=== PATIENT | male | born 1935 | race Two or more races ===

== ENCOUNTER → 2017-11-14 10:38 | Outpatient (CLI) | payer MEDICARE, SELFPAY ==
--- NOTE | 2017-11-14 10:44 | CA_ITS ---
PROCEDURE: 2-D M-mode and color Doppler study INDICATIONS FOR THE TEST: Chest pain COPD Heart Murmur Tobacco Smokingex Palpitations Fatigue Syncope Edema Hypertension+Diabetes Mellitus Rheumatic Fever SOB+PRATER Obesity Hyperlipidemia+ Family History HD Additional History AV replacement 2012, hx of AAA, Pacemaker Name on echo images is Josette Hubbard but is actually Jacinto Paulino's echo PATIENT INFORMATION HEIGHT: 63 WEIGHT: 160 GENDER: Male B/P: 142/84 2-D/M-MODE INTERPRETATION: 2-D MEASUREMENTS OBSERVED VALUES IN CMS Right Ventricular Dimension (RVDd) 2.2 Interventricular Septum (Thickness)(IVsd) 1.0 Left Ventricular Internal Dimensions(LVIDd) 4.7 Left Ventricular Posterior Wall (Thickness)(LVPWd) 1.0 Aortic Root 2.2 Aortic Cusp Separation 1.7 Left Atrial Dimensions (LAD) 3.6 2D 1. Left atrium is mildly enlarged, left ventricle is normal size, there is mild concentric left ventricular hypertrophy, visually estimated ejection fraction 55% with no obvious regional wall motion abnormality. 2. The right atrium and right ventricle are normal size and contractility. 3. There is mild prosthetic valve noted in the aortic position 4. The mitral and tricuspid valve leaflets are minimally thickened. 5. The pulmonic valve is poorly visualized. 6. No significant pericardial effusion noted. DOPPLER INTERROGATION: 1. The maximum aortic out flow velocity across the prosthetic valve is 3.4 m/s, resulting in a mean gradient across valve of 23 mmHg, this represents mild prosthetic valve stenosis, there is no significant aortic insufficiency seen. 2. Mild mitral and tricuspid regurgitation seen, tricuspid and jet velocity insufficient for acquisition of the right ventricular systolic pressure, grade 1 diastolic dysfunction seen with tissue Doppler evidence of raised left atrial pressure. CONCLUSION: 1. Mildly enlarged left atrium, normal left ventricular size, mild concentric left ventricular hypertrophy, visually estimated ejection fraction of 55% with no obvious regional wall motion abnormality, grade 1 diastolic dysfunction seen with tissue Doppler evidence of raised left atrial pressure. 2. 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 3. Mild mitral and tricuspid regurgitation 4. No significant pericardial effusion noted.
== END ==
PROVIDERS: Family Provider Internal Medicine Adolescent Medicine; PCP Internal Medicine Adolescent Medicine; Visit Provider Internal Medicine Cardiovascular Disease
DX: R06.00 Dyspnea, unspecified (principal); I10 Essential (primary) hypertension; E78.5 Hyperlipidemia, unspecified; Z95.2 Presence of prosthetic heart valve; Z86.79 Personal history of other diseases of the circulatory system
CPT/HCPCS: 93306

== ENCOUNTER → 2017-12-04 09:12 | Outpatient (CLI) | payer MEDICARE, SELFPAY ==
[2017-12-04 09:34] LABS: Anion Gap 11.9 mEq/L (5-15); Blood Urea Nitrogen 21 mg/dL (7-18); Carbon Dioxide 30 mmol/L (21.0-32.0); Chloride 105 mmol/L (98-107); Creatinine,Serum 1.31 mg/dL (0.70-1.30); Estimated Glomerular Filt Rate 53 ml/min (>60); GFR (African American) 64 ML/MIN (>60); Glucose 111 mg/dL (74-106); Potassium 4.9 mmoL/L (3.5-5.1); Sodium 142 mmol/L (136-145)
== END ==
PROVIDERS: Visit Provider Internal Medicine Cardiovascular Disease
DX: Z98.890 Other specified postprocedural states (principal); Z95.2 Presence of prosthetic heart valve; I10 Essential (primary) hypertension; E78.5 Hyperlipidemia, unspecified; Z95.0 Presence of cardiac pacemaker; R06.09 Other forms of dyspnea
CPT/HCPCS: 36415; 80048

== ENCOUNTER → 2018-01-27 10:28 | Outpatient (CLI) | payer MEDICARE, SELFPAY ==
[2018-01-27 12:34] LABS: Anion Gap 12.7 mEq/L (5-15); Blood Urea Nitrogen 23 mg/dL (7-18); Carbon Dioxide 29 mmol/L (21.0-32.0); Chloride 104 mmol/L (98-107); Creatinine,Serum 1.11 mg/dL (0.70-1.30); Estimated Glomerular Filt Rate 64 ml/min (>60); GFR (African American) 77 ML/MIN (>60); Glucose 96 mg/dL (74-106); Potassium 4.7 mmoL/L (3.5-5.1); Sodium 141 mmol/L (136-145)
== END ==
PROVIDERS: Visit Provider Internal Medicine Cardiovascular Disease
DX: R94.31 Abnormal electrocardiogram [ECG] [EKG] (principal); R06.09 Other forms of dyspnea; I10 Essential (primary) hypertension; E78.5 Hyperlipidemia, unspecified; Z95.0 Presence of cardiac pacemaker; Z95.2 Presence of prosthetic heart valve
CPT/HCPCS: 36415; 80048

== ENCOUNTER → 2018-03-17 07:24 | Outpatient (CLI) | payer MEDICARE, SELFPAY ==
--- NOTE | 2018-03-17 07:42 | XR_ITS ---
XR chest 2V HISTORY: ITS.REASON: SUPRACLAVICULAR LYMPHADENOPATHY ORDERING PHYSICIAN: Alex García MD PATIENT AGE: 82 years COMPARISON: None FINDINGS: There has been prior aortic valve replacement with median sternotomy. Bipolar pacemaker is present. Normal heart size. There is prominence/aneurysm of the aortic knob. There is also mild prominence of the superior mediastinum which could be due to vascular ectasia. There is tortuosity/ectasia of the descending thoracic aorta. The lungs are clear. Slight decrease in height anteriorly of T4 and T3 age indeterminate. IMPRESSION: 1. Prominence of the aortic knob suggesting aneurysmal dilatation which may be confirmed with CT. 2. Prior aortic valve replacement pacemaker present
[2018-03-17 07:49] LABS: Basophils # 0.1 K/mm3 (0-0.2); Basophils % 0.6 % (0.1-2.0); Eosinophils # 0.2 K/mm3 (0.0-0.4); Eosinophils % 2.2 % (0.1-12.0); Hemoglobin 15.2 g/dL (14.1-18.0); Lymphocytes # 2.8 K/mm3 (0.7-4.5); Lymphocytes % 29.5 K/mm3 (10-50); Mean Corpuscular HGB Conc 31.7 g/dL (31.8-35.4); Mean Corpuscular Hemoglobin 29.4 pg (27.0-31.2); Mean Corpuscular Volume 92.7 fl (80-94); Mean Platelet Volume 6.7 fl (7.4-10.4); Monocytes # 0.5 K/mm3 (0.1-1.0); Monocytes % 5.7 % (1.7-9.3); Neutrophils # 5.8 K/mm3 (1.8-7.8); Neutrophils % 62.1 % (37.0-80.0); Platelet Count 288 K/mm3 (142-424); Red Blood Count 5.18 M/mm3 (4.60-6.20); Red Cell Distribution Width 14.7 % (11.5-17.5); White Blood Count 9.4 K/mm3 (4.8-10.8)
[2018-03-17 08:47] LABS: Alanine Aminotransferase 27 U/L (12-78); Albumin Level 3.8 gm/dL (3.4-5.0); Albumin/Globulin Ratio 1.2 (1.1-1.8); Alkaline Phosphatase 92 U/L (46-116); Anion Gap 10.2 mEq/L (5-15); Aspartate Amino Transferase 16 U/L (15-37); Bilirubin,Total 0.6 mg/dL (0.2-1.0); Blood Urea Nitrogen 18 mg/dL (7-18); Calcium 9.1 mg/dL (8.5-10.1); Carbon Dioxide 29 mmol/L (21.0-32.0); Chloride 105 mmol/L (98-107); Chol/HDL Ratio 3.9 (1-3.5); Cholesterol 162 mg/dL (140-200); Creatinine,Serum 1.17 mg/dL (0.70-1.30); Estimated Glomerular Filt Rate 60 ml/min (>60); GFR (African American) 72 ML/MIN (>60); Globulin 3.2 gm/dl (1.3-3.2); Glucose 103 mg/dL (74-106); HDL Cholesterol 42 mg/dL (27-67); LDL Cholesterol 94 mg/dL (0-130); Potassium 4.2 mmoL/L (3.5-5.1); Sodium 140 mmol/L (136-145); Triglycerides 131 mg/dL (30-200); VLDL Cholesterol 26 mg/dL (0-40)
[2018-03-19 08:05] LABS: Vitamin B12 579 pg/mL (232-1245)
== END ==
PROVIDERS: Visit Provider Internal Medicine Adolescent Medicine
DX: M79.1 Myalgia (principal); E78.4 Other hyperlipidemia; R59.0 Localized enlarged lymph nodes
CPT/HCPCS: 36415; 71046; 80053; 80061; 82607; 83735; 85025

== ENCOUNTER → 2018-06-15 15:20 | Outpatient (POV) | payer MEDICARE, SELFPAY ==
[2018-06-15 15:53] VITALS: BP 153/85; PULSE 74; RESP 18; O2SAT 98
--- NOTE | 2018-06-16 08:34 | HMH.PMCON ---
Assessment and Plan (1) Postlaminectomy syndrome Current visit: Yes Status: Chronic Category: Medical Code(s): M96.1 - Postlaminectomy syndrome, not elsewhere classified (2) Spinal stenosis Current visit: Yes Status: Chronic Qualifiers: Spinal region: lumbar Neurogenic claudication status: unspecified Qualified Code(s): M48.061 - Spinal stenosis, lumbar region without neurogenic claudication Category: Medical Code(s): M48.00 - Spinal stenosis, site unspecified (3) Lumbar radiculopathy Current visit: Yes Status: Acute Category: Medical Code(s): M54.16 - Radiculopathy, lumbar region - Assessment and plan all Dx Assessment and Plan for all problems:: Patient and I had a long discussion in regards to treatment options. Patient is allergic to some narcotics and also unable to take most of them. Patient's tried and failed most of them. Patient's tried and failed multiple anti-inflammatory treatment. Patient's tried and failed physical therapy along with chiropractic therapy and injective therapy. Patient and I discussed in neurostimulator he is interested in pursuing Fan system. I discussed with him that trying an process of implantation. Patient would like to proceed with this. This note was dictated using voice recognition software and may contain errors or omissions HPI - Data of Consult Consult date: 06/15/18 Requesting Physician: Zuleika Reyes APRN Primary Care Provider: Alex García MD Family Provider: Alex García MD - Consult Narrative Reason for consult: Back pain History of present illness: Mr. Paulino is a 82 year old male who presents today for consultation in regards to his constant low back pain. Patient rates his pain a 7 out of 10 today. Patient states it is achy in nature. Patient also has some weakness in his bilateral legs. Patient states all activity increases pain while nothing decreases the pain. Patient has tried physical therapy with no relief massage therapy with no relief, chiropractic therapy with no relief, epidural and facet joint injections with no relief, patient has had surgery and X-Stop placed with some relief. Patient has tried and failed Celebrex, Flexeril, Valium, Voltaren, gabapentin, Lortab, Motrin, bracing, acupuncture, meloxicam, naproxen. Patient is interested in a more long-term answer to his pain issues. Patient is not on any anticoagulation therapy. Patient does have a pacemaker which is a Saint Fan pacemaker. CC: Zuleika Reyes APRN [facility] History I have reviewed the patient's past medical history: Yes Medical History: Reports:: Aneurysm, Hyperlipidemia, Hypertension, Internal Pacemaker Denies:: Diabetes Mellitus Type 1 Other Medical History: Reports: Arthritis Laterality Cases: Bilateral: Tonsillectomy Other Surgeries: Yes: Cardiac Surgery, Mitral Valve Replacement, Pacemaker, Thyroidectomy, Other (Eye Sx, Back Sx ) - *Social History Smoking Status: Never smoker Alcohol Intake: never Alcohol Intake Frequency:: other Occupational Status: other Housing: house Household Members: spouse - Psychiatric History Expresses thoughts of harming self/others: None Suicide Plan Description: No Plan *Family Hx:: Non-contributory Review of Systems - Review of Systems ROS General: no recent weight change, no fever, no sleep disturbances Respiratory: no cough, no shortness of air, no recurring pulmonary infections Cardiovascular/Peripheral Vascular: No chest pain, No palpitations, no edema, no shortness of breath. Gastrointestinal: no incontinence, normal bowel movements reported Genitourinary: no incontinence Musculoskeletal: Back pain Psychiatric: normal mood/ affect, Neurological: Weakness in bilateral lower extremities at times, [denies balance issues] Meds Home Medications Medication Instructions Recorded Confirmed Type artificial tears (hypromellose) 1 drp OPHTHALMIC ONCE 11/06/17 History 0.
--- NOTE | 2018-06-16 08:37 | P.CONS_ITS ---
Assessment and Plan (1) Postlaminectomy syndrome Current visit: Yes Status: Chronic Category: Medical Code(s): M96.1 - Postlaminectomy syndrome, not elsewhere classified (2) Spinal stenosis Current visit: Yes Status: Chronic Qualifiers: Spinal region: lumbar Neurogenic claudication status: unspecified Qualifi ed Code(s): M48.061 - Spinal stenosis, lumbar region without neurogenic claudication Category: Medical Code(s): M48.00 - Spinal stenosis, site unspecified (3) Lumbar radiculopathy Current visit: Yes Status: Acute Category: Medical Code(s): M54.16 - Radiculopathy, lumbar region - Assessment and plan all Dx Assessment and Plan for all problems:: Patient and I had a long discussion in regards to treatment options. Patient is allergic to some narcotics and also unable to take most of them. Patient's tried and failed most of them. Patient's tried and failed multiple anti- inflammatory treatment. Patient's tried and failed physical therapy along with chiropractic therapy and injective therapy. Patient and I discussed in neurostimulator he is interested in pursuing Fan system. I discussed with him that trying an process of implantation. Patient would like to proceed with this. This note was dictated using voice recognition software and may contain errors or omissions HPI - Data of Consult Consult date: 06/15/18 Requesting Physician: Zuleika Reyes APRN Primary Care Provider: Alex García MD Family Provider: lAex García MD - Consult Narrative Reason for consult: Back pain History of present illness: Mr. Paulino is a 82 year old male who presents today for consultation in regards to his constant low back pain. Patient rates his pain a 7 out of 10 today. Patient states it is achy in nature. Patient also has some weakness in his bilateral legs. Patient states all activity increases pain while nothing decreases the pain. Patient has tried physical therapy with no relief massage therapy with no relief, chiropractic therapy with no relief, epidural and facet joint injections with no relief, patient has had surgery and X-Stop placed with some relief. Patient has tried and failed Celebrex, Flexeril, Valium, Voltaren, gabapentin, Lortab, Motrin, bracing, acupuncture, meloxicam, naproxen. Patient is interested in a more long-term answer to his pain issues. Patient is not on any anticoagulation therapy. Patient does have a pacemaker which is a Saint Fan pacemaker. CC: Zuleika Reyes APRN [facility] History I have reviewed the patient's past medical history: Yes Medical History: Reports:: Aneurysm, Hyperlipidemia, Hypertension, Internal Pacemaker Denies:: Diabetes Mellitus Type 1 Other Medical History: Reports: Arthritis Laterality Cases: Bilateral: Tonsillectomy Other Surgeries: Yes: Cardiac Surgery, Mitral Valve Replacement, Pacemaker, Thyroidectomy, Other (Eye Sx, Back Sx ) - *Social History Smoking Status: Never smoker Alcohol Intake: never Alcohol Intake Frequency:: other Occupational Status: other Housing: house Household Members: spouse - Psychiatric History Expresses thoughts of harming self/others: None Suicide Plan Description: No Plan *Family Hx:: Non-contributory Review of Systems - Review of Systems ROS General: no recent weight change, no fever, no sleep disturbances Respiratory: no cough, no shortness of air, no recurring pulmonary infections Cardiovascular/Peripheral Vascular: No chest pain, No palpitations, no edema, no shortness of breath. Gastrointestinal: no incontin
== END ==
PROVIDERS: Family Provider Internal Medicine Adolescent Medicine; PCP Internal Medicine Adolescent Medicine; Visit Provider Clinical Nurse Specialist Family Health
DX: M96.1 Postlaminectomy syndrome, not elsewhere classified (principal); M48.061 Spinal stenosis, lumbar region without neurogenic claudication; M54.16 Radiculopathy, lumbar region
CPT/HCPCS: 99202

== ENCOUNTER → 2018-06-29 08:29 | Outpatient (CLI) | payer MEDICARE, SELFPAY ==
--- NOTE | 2018-06-29 08:31 | CI_ITS ---
Cerebrovascular Exam Indications: 785.9 Bruit. IMPRESSIONS 1. The bilateral vertebral arteries are patent with normal antegrade flow. 2. Study suggests 20-49% stenosis involving the right internal carotid artery and the left internal carotid artery, lower end of scale. Carotid duplex study. Complete study and Doppler flow study including spectral analysis, color and garza scale imaging. Height: Height: 172.7cm. Height: 68in. Weight: Weight: 73.9kg. Weight: 162.7lb. Body mass index: BMI: 24.8kg/m^2. Body surface area: BSA: 1.89m^2. Location: Vascular laboratory. Patient status: Outpatient. Tables: Arterial flow: + +--------+--------+ Location V sys V ed + +--------+--------+ Right CCA - proximal 39.7cm/s 10.2cm/s + +--------+--------+ Right CCA - distal 33.6cm/s 13.2cm/s + +--------+--------+ Right ECA 67.3cm/s -------- + +--------+--------+ Right ICA - proximal 30.6cm/s 9.7cm/s + +--------+--------+ Right ICA - mid 48.8cm/s 17.6cm/s + +--------+--------+ Right ICA - distal 70.2cm/s 26.2cm/s + +--------+--------+ Right vertebral 31.4cm/s -------- + +--------+--------+ Left CCA - proximal 125cm/s 25.8cm/s + +--------+--------+ Left CCA - distal 46.2cm/s 16.7cm/s + +--------+--------+ Left ECA 45.6cm/s -------- + +--------+--------+ Left ICA - proximal 27.8cm/s 10.7cm/s + +--------+--------+ Left ICA - mid 39.4cm/s 13cm/s + +--------+--------+ Left ICA - distal 47.1cm/s 16.9cm/s + +--------+--------+ Left vertebral 32.3cm/s -------- + +--------+--------+ Velocity ratios: + + + + + + Right, V sys Right, V ed Left, V sys Left, V ed + + + + + + Max ICA/dist CCA 2.09 1.98 1.02 1.01 + + + + + + (Report amended ) Electronically signed by: Giorgi Lu [id number]
== END ==
PROVIDERS: Family Provider Internal Medicine Adolescent Medicine; PCP Internal Medicine Adolescent Medicine; Visit Provider Internal Medicine
DX: I10 Essential (primary) hypertension; R09.89 Other specified symptoms and signs involving the circulatory and respiratory systems; R94.31 Abnormal electrocardiogram [ECG] [EKG]; Z87.891 Personal history of nicotine dependence; Z95.0 Presence of cardiac pacemaker; Z95.2 Presence of prosthetic heart valve; Z98.890 Other specified postprocedural states; I65.23 Occlusion and stenosis of bilateral carotid arteries
CPT/HCPCS: 93880

== ENCOUNTER 2018-08-24 09:03 | Outpatient (RCR) | payer MEDICARE, SELFPAY ==
--- NOTE | 2018-08-24 10:46 | HMH.PTOPEV ---
PT Outpatient Evaluation Rehab PT Outpatient Evaluation Start: 08/24/18 09:27 Freq: Status: Active Protocol: Document 08/24/18 10:33 ZOLTAN (Rec: 08/24/18 10:46 PHORWANDY [id number]) Electronically Signed By Paulo Espana, PT 08/24/18 10:33 Outpatient Therapy Subjective History Subjective History Pt is 83 yohm who presents with c/o chronic low back pain x ~ 40 yrs, worse on the right side with intermittent pain in the buttocks alexis. He states, I picked up an air conditioner wrong and it has hurt me ever since. He reports having surgery for spacers at L2-3, L3-4, and L4- 5 ! 8 yrs ago which helped minimally. He reports a sharp pain on the right side of the spine at ~ L3-4 vertebral level that is fairly constant. He also reports pain is worst with walking. PMH: carotid stenosis, Pacemaker, aortic valve replacement, HTN, partial thyroidectomy. Chief Complaint Pain Symptom Type Sharp Symptoms Relieved By Activity Symptoms Aggravated By Walking Prior Functional Limitations Walking Current Functional Limitations Walking Symptom Description Constant but Variable Level of pain today (0-10) 8 Pain scale - at its worst (0-10) 10 Lumbopelvic Eval Palapation tenderness bilateral buttock tenderness Yes: minimal Range of Motion Lumbar Spine Active Flexion Range of 0-60 Motion (degrees) Lumbar Spine Active Extension Range of 0-15 Motion (degrees) Left Lumbar Spine Lateral Flexion Active 0-10 Range of Motion (degrees) Right Lumbar Spine Lateral Flexion 0-10 Active Range of Motion (degrees) Manual Muscle Test Bilateral Knee Extension Strength Grade 5 Normal Knee Flexion Strength Grade 5 Normal Hip Flexion Strength Grade 5 Normal Hip Abduction Strength Grade 5 Normal Hip Adduction Strength Grade 5 Normal Ankle Dorsiflexion Strength Grade 5 Normal Gastronemius/Soleus Strength Grade 5 Normal DTR Rt Patellar 2+ Lt Patellar 2+ Rt Gastroc/Soleus 2+ Lt Gastroc/Soleus 2+ Special Tests Hip Scouring (Quadrant) Test Negative Left Negative Right Hip Igor (JUHI)
== END 2018-08-24 09:05 | disposition home or self-care (01) ==
LOC: PT 09:03
PROVIDERS: Visit Provider Internal Medicine Adolescent Medicine
DX: M54.5 Low back pain (principal)
CPT/HCPCS: 97110; 97163

== ENCOUNTER → 2018-11-20 08:23 | Outpatient (CLI) | payer MEDICARE, SELFPAY ==
[2018-11-20 09:58] LABS: Chol/HDL Ratio 6.1 (1-3.5); Cholesterol 214 mg/dL (140-200); HDL Cholesterol 35 mg/dL (27-67); LDL Cholesterol 147 mg/dL (0-130); Triglycerides 161 mg/dL (30-200); VLDL Cholesterol 32 mg/dL (0-40)
== END ==
PROVIDERS: Visit Provider Internal Medicine Adolescent Medicine
DX: E78.2 Mixed hyperlipidemia (principal)
CPT/HCPCS: 36415; 80061

== ENCOUNTER → 2019-01-25 07:48 | Outpatient (CLI) | payer MEDICARE, SELFPAY ==
--- NOTE | 2019-01-25 07:51 | US_ITS ---
US abdomen complete HISTORY: Ascending aortic aneurysm, prior aneurysm repair of the ascending aorta, evaluate for aneurysm ITS.REASON: AAA ORDERING PHYSICIAN: Rafa Fleming PATIENT AGE: 83 years COMPARISON: None FINDINGS: PANCREAS:Unremarkable. No obvious mass or abnormal fluid collection. No ductal dilatation LIVER:No focal liver lesions demonstrated. Homogeneous echogenicity. No intrahepatic biliary ductal dilatation evident RIGHT KIDNEY:Unremarkable. Normal size and echogenicity. No hydronephrosis LEFT KIDNEY:Unremarkable. No hydronephrosis. Normal size and echogenicity. GALLBLADDER:There are gallstones noted. No gallbladder wall thickening, pericholecystic fluid, or biliary dilatation is evident. AORTA:There is a moderate amount plaque within the mid abdominal aorta posteriorly. There is suggestion of a 4 cm infrarenal abdominal aortic aneurysm. The aneurysm may be larger than this measuring up to 5 cm. This is somewhat difficult to evaluate due to the plaque at overlying bowel gas. Suggest CT of the abdomen for confirmation. SPLEEN:Unremarkable. Normal size and echogenicity ASCITES:None demonstrated. IMPRESSION: Mid abdominal aortic aneurysm measuring up to 4 cm possibly up to [address] of the abdomen for confirmation.
--- NOTE | 2019-01-25 08:00 | CA_ITS ---
PROCEDURE: 2-D M-mode and color Doppler study INDICATIONS FOR THE TEST: Chest pain COPD Heart Murmur Tobacco SmokingEX Palpitations Fatigue Syncope Edema HypertensionXDiabetes Mellitus Rheumatic Fever SOB PRATER Obesity HyperlipidemiaX Family History HD Additional History AAA,PP,AVR 2011 [facility] PATIENT INFORMATION HEIGHT: 63 WEIGHT:160 GENDER: Male B/P:129/87 2-D/M-MODE INTERPRETATION: 2-D MEASUREMENTS OBSERVED VALUES IN CMS Right Ventricular Dimension (RVDd) 3.0 Interventricular Septum (Thickness)(IVsd) .9 Left Ventricular Internal Dimensions(LVIDd) 5.3 Left Ventricular Posterior Wall (Thickness)(LVPWd) .9 Aortic Root 4.0 Aortic Cusp Separation 1.5 Left Atrial Dimensions (LAD) 3.2 2D 1. Left atrium is mildly enlarged, left ventricle is normal size, mild concentric left ventricular hypertrophy, visually estimated ejection fraction 55% with no regional wall motion abnormality. 2. The right atrium and right ventricle are mildly enlarged with normal contractility. 3. There is mild prosthetic valve noted in the aortic position, the valve is well seated. 4. The mitral and tricuspid valve leaflets are minimally thickened. 5. The pulmonic valve is poorly visualized. 6. No significant pericardial effusion noted. DOPPLER INTERROGATION: 1. The aortic out flow velocity across the prosthetic valve is within normal range. There is no prosthetic valve stenosis or prosthetic valve insufficiency. 2. The mitral inflow velocity within normal range, there is no mitral stenosis, there is mild mitral regurgitation. 3. There is mild tricuspid regurgitation noted, tricuspid regurgitation jet velocity is inadequate for calculation of the right ventricular systolic pressure. 4. Grade 1 diastolic dysfunction seen without tissue Doppler evidence of raised left atrial pressure. CONCLUSION: 1. Mildly enlarged left atrium, normal left ventricular size, mild concentric left ventricular hypertrophy, visually estimated ejection fraction 55% with no regional wall motion abnormality, grade 1 diastolic dysfunction seen without tissue Doppler evidence of raised left atrial pressure. 2. Normal functioning bio prosthetic valve in aortic position 3. Mild mitral and tricuspid regurgitation 4. No significant pericardial effusion noted.
== END ==
PROVIDERS: PCP Internal Medicine Adolescent Medicine; Visit Provider Internal Medicine Cardiovascular Disease
DX: I71.4 Abdominal aortic aneurysm, without rupture (principal); I10 Essential (primary) hypertension; Z95.2 Presence of prosthetic heart valve
CPT/HCPCS: 76700; 93306

== ENCOUNTER → 2019-02-10 12:33 | Outpatient (CLI) | payer MEDICARE, SELFPAY ==
--- NOTE | 2019-02-10 12:36 | CT_ITS ---
CT abdomen wo con CLINICAL INDICATION: Abdominal aortic aneurysm, back pain ITS.REASON: AAA ORDERING PHYSICIAN: Rafa Fleming PATIENT AGE: 83 years COMPARISON: None TECHNIQUE: Axial images obtained with sagittal and coronal reformats. All CT scans at the facility use one or more dose reduction, viz: automated exposure control, ma/kV adjustment per patient size (including targeted exams where dose is matched to indication, i.e. head), or iterative reconstruction technique. PROCEDURE: Oral Contrast: None IV Contrast: None . FINDINGS: No acute finding in the lung bases. There is a noncalcified 6 mm nodule in the left lower lobe posterior medially. 4 mm noncalcified nodule in the right upper lobe inferiorly. Calcified granulomas present in the right lung base. There is been a prior CABG and aortic valve replacement. There are coronary artery calcifications as well as artifact from a RV pacemaker.. 8 mm hypoattenuating nodule is present in the left hepatic lobe medial segment. Gallstones are noted. There is an additional isodensity in the right hepatic lobe anteriorly at 6 mm. Spleen, adrenal glands, and pancreas have an unremarkable unenhanced CT appearance. There is minimal haziness of the midline mesenteric fat. There is tortuosity of the abdominal aorta. There is mild ectasia of the aorta at the thoracic abdominal junction at 3.2 x 3.2 cm. At the level the renal arteries the aorta measures 2 cm transverse and then becomes mildly fusiformly dilated measuring up to 2.9 cm transverse and 3 cm AP. Atherosclerotic changes involve the common iliacs. There is diffuse colonic diverticulosis. No evidence of diverticulitis. Degenerative changes are present in the lumbar spine with postsurgical changes. IMPRESSION: 1. Mild fusiform dilatation of the aorta at the thoracic abdominal junction at 3.2 x 3.2 cm becoming normal caliber at the level the renal arteries and then becomes mildly dilated in the infrarenal region at 2.9 x 3 cm. No evidence of acute intracranial hemorrhage 2. 6 mm noncalcified nodule left lower lobe. Consider 6 month follow-up. 3. Mild haziness of the central mesenteric fat nonspecific. 4. Cholelithiasis. 5. Colonic diverticulosis
== END ==
PROVIDERS: PCP Internal Medicine Adolescent Medicine; Visit Provider Internal Medicine Cardiovascular Disease
DX: I71.4 Abdominal aortic aneurysm, without rupture (principal)
CPT/HCPCS: 74150

== ENCOUNTER 2019-10-20 09:26 | Outpatient (RCR) | payer MEDICARE, SELFPAY ==
--- NOTE | 2019-10-20 10:49 | HMH.PTOPEV ---
PT Outpatient Evaluation Rehab PT Outpatient Evaluation Start: 10/20/19 09:39 Freq: Status: Active Protocol: Document 10/20/19 10:20 PHORNE (Rec: 10/20/19 10:49 PHORNE [id number]) Electronically Signed By Paulo Espana, PT 10/20/19 10:20 Outpatient Therapy Subjective History Subjective History Pt is 84 yohm who presents with c/o persistent dizziness x ~ 5-6 mos with insidious onset of symptoms. He reports low grade dizziness at all times and only rare, intermittent positional vertigo. He has significant cardiac hx with prior aortic valve replacement and ascending aorta repair, HTN, and pacemaker. He reports his HTN has been problematic over the same time period with good systolic pressure, but very high dyastolic pressure. 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 Chief Complaint Other Symptoms Relieved By Nothing Prior Functional Limitations None Current Functional Limitations None Symptom Description Constant but Variable Level of pain today (0-10) 0 Pain scale - at its worst (0-10) 0 Balance Eval Hx of Falls Hx Falls No Gait/Posture Asssessment General Gait Observation No Deviations/Normal Assistive Devices None / NA Level of Transfer Assist Independent Nystagmus Nystagmus Presence None Timed Up and Go Test 3. Is the Timed Up and Go Test result < yes 12 seconds? Oculomotor Gaze Oculomotor Gaze Nml: Vergence Smooth Pursuit Saccades VOR Cancellation [place] Feet Together/Eyes open/Stable Surface pass Feet Together/Eyes Closed/Stable Surface pass Feet Together/Eyes open/Unstable Surface pass Feet Together/Eyes Closed/Unstable pass Surface Outpatient Therapy Assessment Impairments Problems/Impairmments Impaired Self Care/Self Management Prognosis Rehab Potential Good Comment Pt c/o mild dizziness are most likely related to his HTN/
== END 2019-10-20 09:30 | disposition home or self-care (01) ==
LOC: PT 09:26
PROVIDERS: PCP Internal Medicine Adolescent Medicine; Visit Provider Internal Medicine Adolescent Medicine
DX: R42 Dizziness and giddiness (principal)
CPT/HCPCS: 97163

== ENCOUNTER → 2019-10-21 11:22 | Outpatient (CLI) | payer MEDICARE, SELFPAY ==
[2019-10-21 12:07] LABS: Basophils % 0.5 % (0.1-2.0); Eosinophils # 0.2 K/mm3 (0.0-0.4); Hematocrit 45.4 % (42.0-52.0); Hemoglobin 14.5 g/dL (14.1-18.0); Lymphocytes # 2.4 K/mm3 (0.7-4.5); Lymphocytes % 28.2 % (10-50); Mean Corpuscular Hemoglobin 29.7 pg (27.0-31.2); Mean Platelet Volume 7.6 fl (7.4-10.4); Monocytes # 0.6 K/mm3 (0.1-1.0); Monocytes % 6.6 % (1.7-9.3); Neutrophils # 5.2 K/mm3 (1.8-7.8); Neutrophils % 62.6 % (37.0-80.0); Platelet Count 225 K/mm3 (142-424); Red Blood Count 4.89 M/mm3 (4.60-6.20); White Blood Count 8.4 K/mm3 (4.8-10.8)
[2019-10-21 16:31] LABS: Alanine Aminotransferase 28 U/L (12-78); Albumin Level 3.6 gm/dL (3.4-5.0); Albumin/Globulin Ratio 1.2 (1.1-1.8); Alkaline Phosphatase 105 U/L (46-116); Anion Gap 16.7 mEq/L (5-15); Aspartate Amino Transferase 18 U/L (15-37); Bilirubin,Total 0.5 mg/dL (0.2-1.0); Blood Urea Nitrogen 19 mg/dL (7-18); Calcium 8.9 mg/dL (8.5-10.1); Carbon Dioxide 26 mmol/L (21.0-32.0); Chloride 106 mmol/L (98-107); Cholesterol 141 mg/dL (140-200); Creatinine,Serum 1.41 mg/dL (0.70-1.30); Estimated Glomerular Filt Rate 48 ml/min (>60); GFR (African American) 58 ML/MIN (>60); Glucose 89 mg/dL (74-106); HDL Cholesterol 35 mg/dL (27-67); LDL Cholesterol 69 mg/dL (0-130); Potassium 4.7 mmoL/L (3.5-5.1); Sodium 144 mmol/L (136-145); Thyroid Stimulating Hormone 0.42 uIU/ml (0.358-3.740); Total Protein,Serum 6.6 gm/dL (6.4-8.2); Triglycerides 185 mg/dL (30-200); VLDL Cholesterol 37 mg/dL (0-40)
== END ==
PROVIDERS: Visit Provider Internal Medicine Adolescent Medicine
DX: I10 Essential (primary) hypertension (principal)
CPT/HCPCS: 36415; 80053; 80061; 84443; 85025

== ENCOUNTER → 2020-03-07 10:53 | Outpatient (POV) | payer MEDICARE, SELFPAY | PROVIDERS: PCP Internal Medicine Adolescent Medicine; Visit Provider Physician Assistant | DX: Z00.00 Encounter for general adult medical examination without abnormal findings (principal) ==

== ENCOUNTER → 2020-03-20 08:46 | Outpatient (CLI) | payer MEDICARE, SELFPAY ==
--- NOTE | 2020-03-20 08:58 | XR_ITS ---
PROCEDURE: XR HIP RT 2-3V W/PELVIS CLINICAL INDICATION: RT HIP PAIN COMPARISON: No exams were available for comparison FINDINGS: Minimal osteoarthritic change. No fracture or dislocation. No lytic or blastic change. Postsurgical changes lumbar spine IMPRESSION: Minimal osteoarthritis Dictated by: Giorgi Lu MD 03/20/2020 12:23 Electronically signed by Giorgi Lu MD in [facility] 03/20/2020 12:23
[2020-03-20 10:21] LABS: Chloride 104 mmol/L (98-107)
[2020-03-20 10:22] LABS: Potassium 5.1 mmoL/L (3.5-5.1); Sodium 137 mmol/L (136-145)
[2020-03-20 10:24] LABS: Alanine Aminotransferase 20 U/L (12-78); Anion Gap 9.1 mEq/L (5-15); Aspartate Amino Transferase 25 U/L (17-59); Blood Urea Nitrogen 21 mg/dl (9-20); Carbon Dioxide 29 mmol/L (22.0-30.0); Estimated Glomerular Filt Rate 53 ml/min (>60); GFR (African American) 64 ML/MIN (>60)
[2020-03-20 10:25] LABS: Albumin Level 4.1 g/dl (3.5-5.0); Albumin/Globulin Ratio 1.5 (1.1-1.8); Alkaline Phosphatase 79 U/L (38-126); Bilirubin,Total 0.7 mg/dl (0.2-1.3); Calcium 9.6 mg/dl (8.4-10.2); Chol/HDL Ratio 3.7 (1-3.5); Cholesterol 146 mg/dl (140-200); Globulin 2.8 g/dL (1.3-3.2); Glucose 111 mg/dl (74-100); HDL Cholesterol 40 mg/dl (40-60); Total Protein,Serum 6.9 g/dl (6.3-8.2); Triglycerides 196 mg/dl (30-150); VLDL Cholesterol 39 mg/dL (0-40)
[2020-03-20 10:26] LABS: Basophils % 0.5 % (0.1-2.0); Eosinophils # 0.3 K/mm3 (0.0-0.4); Eosinophils % 3.5 % (0.1-12.0); Hematocrit 46.1 % (42.0-52.0); Hemoglobin 15.8 g/dL (14.1-18.0); Lymphocytes # 2.9 K/mm3 (0.7-4.5); Lymphocytes % 34.7 % (10-50); Mean Corpuscular HGB Conc 34.2 g/dL (31.8-35.4); Mean Corpuscular Hemoglobin 31.4 pg (27.0-31.2); Mean Corpuscular Volume 91.8 fl (80-94); Monocytes # 0.6 K/mm3 (0.1-1.0); Monocytes % 6.6 % (1.7-9.3); Neutrophils # 4.6 K/mm3 (1.8-7.8); Neutrophils % 54.7 % (37.0-80.0); Platelet Count 244 K/mm3 (142-424); Red Blood Count 5.02 M/mm3 (4.60-6.20); Red Cell Distribution Width 13.7 % (11.5-17.5); White Blood Count 8.4 K/mm3 (4.8-10.8)
[2020-03-20 12:31] LABS: Hemoglobin A1C 5.8 % (4.0-6.0)
== END ==
PROVIDERS: PCP Internal Medicine Adolescent Medicine; Visit Provider Internal Medicine Adolescent Medicine
DX: I10 Essential (primary) hypertension (principal); M25.551 Pain in right hip; Z79.899 Other long term (current) drug therapy
CPT/HCPCS: 36415; 73502; 80053; 80061; 83036; 85025

== ENCOUNTER 2020-06-11 21:11 | Emergency (ER) | payer MEDICARE, SELFPAY ==
--- NOTE | 2020-06-11 21:22 | PC.NURSE ---
Pt came in c/o hypertension and headache since yesterday. Hooked patient up to monitor and obtained v/s which showed pressure of 146/85. I obtained further info from pt and told him his pressure 146/85. I advised him he we were going to start an IV, obtain a scan, and do an EKG. Pt started shaking his head no and saying he didn't want the things. I advised him this was typical workup for these complaints. He shook his head and said no. HE started speaking to his daughter and was telling her he didn't want those things. I asked the patient if he didn't want those procedures what things he would like done. He shook his head no and kept saying no and became agitated and left. Daughter apologized and left with pt.
[2020-06-11 21:46] VITALS: BP 146/86; PULSE 71; RESP 16; TEMP 36.8; O2SAT 98
== END 2020-06-11 21:48 | disposition left against medical advice (07) ==
LOC: ER 21:18
PROVIDERS: Emergency Provider Emergency Medicine; PCP Internal Medicine Adolescent Medicine
DX: Z53.21 Procedure and treatment not carried out due to patient leaving prior to being seen by health care provider (principal)
CPT/HCPCS: 99211

== ENCOUNTER → 2020-10-02 08:31 | Outpatient (CLI) | payer MEDICARE, SELFPAY ==
[2020-10-02 09:28] LABS: Basophils # 0.1 K/mm3 (0-0.2); Basophils % 0.7 % (0.1-2.0); Eosinophils # 0.3 K/mm3 (0.0-0.4); Hematocrit 49.5 % (42.0-52.0); Hemoglobin 15.9 g/dL (14.1-18.0); Lymphocytes # 3.1 K/mm3 (0.7-4.5); Lymphocytes % 36.9 % (10-50); Mean Corpuscular HGB Conc 32.2 g/dL (31.8-35.4); Mean Corpuscular Hemoglobin 30.6 pg (27.0-31.2); Mean Corpuscular Volume 95.1 fl (80-94); Mean Platelet Volume 7.4 fl (7.4-10.4); Monocytes # 0.6 K/mm3 (0.1-1.0); Monocytes % 6.9 % (1.7-9.3); Neutrophils # 4.4 K/mm3 (1.8-7.8); Neutrophils % 52.5 % (37.0-80.0); Platelet Count 233 K/mm3 (142-424); Red Blood Count 5.21 M/mm3 (4.60-6.20); Red Cell Distribution Width 14.1 % (11.5-17.5); White Blood Count 8.3 K/mm3 (4.8-10.8)
[2020-10-02 10:42] LABS: Chloride 103 mmol/L (98-107); Potassium 4.2 mmoL/L (3.5-5.1); Sodium 142 mmol/L (136-145)
[2020-10-02 10:44] LABS: Alanine Aminotransferase 26 U/L (12-78); Aspartate Amino Transferase 31 U/L (17-59); Blood Urea Nitrogen 20 mg/dl (9-20); Estimated Glomerular Filt Rate 53 ml/min (>60); GFR (African American) 64 ML/MIN (>60)
[2020-10-02 10:45] LABS: Albumin Level 4.5 g/dl (3.5-5.0); Albumin/Globulin Ratio 1.4 (1.1-1.8); Alkaline Phosphatase 97 U/L (38-126); Anion Gap 14.2 mEq/L (5-15); Bilirubin,Total 0.7 mg/dl (0.2-1.3); Calcium 9.7 mg/dl (8.4-10.2); Carbon Dioxide 29 mmol/L (22.0-30.0); Cholesterol 164 mg/dl (140-200); Globulin 3.2 g/dL (1.3-3.2); Glucose 113 mg/dl (74-100); HDL Cholesterol 41 mg/dl (40-60); Total Protein,Serum 7.7 g/dl (6.3-8.2); Triglycerides 180 mg/dl (30-150); VLDL Cholesterol 36 mg/dL (0-40)
[2020-10-02 10:56] LABS: Direct LDL Cholesterol 84.22 mg/dL (100-129)
== END ==
PROVIDERS: Visit Provider Internal Medicine Adolescent Medicine
DX: I10 Essential (primary) hypertension (principal)
CPT/HCPCS: 36415; 80053; 80061; 85025

== ENCOUNTER → 2021-05-01 13:24 | Outpatient (CLI) | payer MEDICARE, SELFPAY ==
[2021-05-01 14:12] LABS: Basophils % 0.4 % (0.1-2.0); Eosinophils # 0.4 K/mm3 (0.0-0.4); Eosinophils % 4.1 % (0.1-12.0); Hematocrit 42.9 % (42.0-52.0); Hemoglobin 14.3 g/dL (14.1-18.0); Lymphocytes # 2.8 K/mm3 (0.7-4.5); Mean Corpuscular HGB Conc 33.4 g/dL (31.8-35.4); Mean Corpuscular Hemoglobin 29.8 pg (27.0-31.2); Mean Corpuscular Volume 89.4 fl (80-94); Mean Platelet Volume 7.5 fl (7.4-10.4); Monocytes # 0.5 K/mm3 (0.1-1.0); Monocytes % 6.1 % (1.7-9.3); Neutrophils # 5.2 K/mm3 (1.8-7.8); Neutrophils % 58.4 % (37.0-80.0); Platelet Count 209 K/mm3 (142-424); Red Cell Distribution Width 14.2 % (11.5-17.5); White Blood Count 8.9 K/mm3 (4.8-10.8)
[2021-05-01 14:41] LABS: Chloride 103 mmol/L (98-107); Sodium 140 mmol/L (136-145)
[2021-05-01 14:44] LABS: Alanine Aminotransferase 19 U/L (12-78); Albumin Level 4.1 g/dl (3.5-5.0); Albumin/Globulin Ratio 1.5 (1.1-1.8); Alkaline Phosphatase 103 U/L (38-126); Aspartate Amino Transferase 25 U/L (17-59); Bilirubin,Total 0.4 mg/dl (0.2-1.3); Blood Urea Nitrogen 20 mg/dl (9-20); Carbon Dioxide 29 mmol/L (22.0-30.0); Cholesterol 144 mg/dl (140-200); Estimated Glomerular Filt Rate 48 ml/min (>60); GFR (African American) 58 ML/MIN (>60); Globulin 2.7 g/dL (1.3-3.2); Total Protein,Serum 6.8 g/dl (6.3-8.2); Triglycerides 289 mg/dl (30-150); VLDL Cholesterol 58 mg/dL (0-40)
[2021-05-01 14:45] LABS: Chol/HDL Ratio 4.2 (1-3.5); Glucose 98 mg/dl (74-100); HDL Cholesterol 34 mg/dl (40-60)
[2021-05-01 14:56] LABS: Direct LDL Cholesterol 73.91 mg/dL (100-129)
[2021-05-01 15:04] LABS: Free Thyroxine Index 2.5 ug/dL (5.93-13.13); T4 (Thyroxine) 7.9 ug/dl (5.53-11.0); Triiodothryronine (T3) Uptake 32 % (23.5-40.5)
[2021-05-01 15:18] LABS: Thyroid Stimulating Hormone 1.08 uIU/mL (0.465-4.68)
== END ==
PROVIDERS: Visit Provider Internal Medicine Adolescent Medicine
DX: I10 Essential (primary) hypertension (principal); E78.2 Mixed hyperlipidemia; F34.1 Dysthymic disorder
CPT/HCPCS: 36415; 80053; 80061; 84436; 84443; 84479; 85025

== ENCOUNTER → 2021-08-07 14:22 | Outpatient (CLI) | payer MEDICARE, SELFPAY ==
--- NOTE | 2021-08-07 14:28 | CA_ITS ---
APPROVED REPORT Carton Wrapper: Silvia Miles RVT Laterality: Bilateral Study Quality: Good Indications: DIZZINESS,BRUIT Risk Factors Hypertension: Hyperlipidemia Doppler Spectral Velocity Analysis ECA (R) 79.30/14.20 cm/s ECA (L) 58.80/13.50 cm/s dICA (R) 50.90/18.00 cm/s dICA (L) 37.60/14.40 cm/s Capri (R) 43.40/12.70 cm/s Capri (L) 48.20/16.40 cm/s pICA (R) 39.70/14.20 cm/s pICA (L) 42.40/13.50 cm/s dCCA (R) 25.40/9.70 cm/s dCCA (L) 41.40/12.50 cm/s pCCA (R) 38.20/7.50 cm/s pCCA (L) 66.50/17.30 cm/s Vert (R) 38.20/15.00 cm/s Vert (L) 33.70/11.60 cm/s ICA/CCA 2.00 ICA/CCA 1.16 Findings Study suggests 20-49% stenosis of the right internal cartoid artery. Study suggests 20-49% stenosis of the let internal cartoid artery. Antegrade flow seen bilateral vertebral arteries. Conclusion Study suggests 20-49% stenosis of the right internal cartoid artery. Study suggests 20-49% stenosis of the let internal cartoid artery. Antegrade flow seen bilateral vertebral arteries. Electronically signed by : Giorgi Lu MD 08/08/2021 19:35:36
== END ==
PROVIDERS: PCP Internal Medicine Adolescent Medicine; Visit Provider Internal Medicine Adolescent Medicine
DX: R42 Dizziness and giddiness (principal)
CPT/HCPCS: 93880

== ENCOUNTER 2021-08-15 11:00 | Outpatient (RCR) | payer MEDICARE, SELFPAY | END 2021-08-15 11:05 | disposition home or self-care (01) | LOC: PT 11:00 | PROVIDERS: PCP Internal Medicine Adolescent Medicine; Visit Provider Internal Medicine Adolescent Medicine | DX: S46.811D Strain of other muscles, fascia and tendons at shoulder and upper arm level, right arm, subsequent encounter (principal) | CPT/HCPCS: 20560; 97010; 97035; 97110; 97140; 97163; 97535 ==

== ENCOUNTER 2021-08-20 12:28 | Emergency (ER) | payer MEDICARE, SELFPAY ==
[2021-08-20] VITALS (8 sets, daily range): BP systolic 147–182; BP diastolic 94–108; PULSE 69–81; RESP 18–20; TEMP 36.6; O2SAT 97–100; BMI 28.3
[2021-08-20 13:18] LABS: Basophils # 0.1 K/mm3 (0-0.2); Basophils % 0.7 % (0.1-2.0); Chloride 101 mmol/L (98-107); Eosinophils # 0.3 K/mm3 (0.0-0.4); Eosinophils % 3.6 % (0.1-12.0); Hematocrit 46.5 % (42.0-52.0); Hemoglobin 15.7 g/dL (14.1-18.0); Lymphocytes # 2.9 K/mm3 (0.7-4.5); Mean Corpuscular HGB Conc 33.8 g/dL (31.8-35.4); Mean Corpuscular Hemoglobin 30.6 pg (27.0-31.2); Mean Corpuscular Volume 90.4 fl (80-94); Mean Platelet Volume 7.6 fl (7.4-10.4); Monocytes # 0.6 K/mm3 (0.1-1.0); Monocytes % 6.8 % (1.7-9.3); Neutrophils # 5.1 K/mm3 (1.8-7.8); Platelet Count 233 K/mm3 (142-424); Potassium 4.7 mmoL/L (3.5-5.1); Red Blood Count 5.14 M/mm3 (4.60-6.20); Red Cell Distribution Width 14.1 % (11.5-17.5); Sodium 139 mmol/L (136-145)
[2021-08-20 13:21] LABS: Alanine Aminotransferase 17 U/L (12-78); Albumin Level 4.5 g/dl (3.5-5.0); Albumin/Globulin Ratio 1.6 (1.1-1.8); Alkaline Phosphatase 99 U/L (38-126); Anion Gap 12.7 mEq/L (5-15); Aspartate Amino Transferase 31 U/L (17-59); Bilirubin,Total 0.4 mg/dl (0.2-1.3); Blood Urea Nitrogen 22 mg/dl (9-20); Calcium 10.2 mg/dl (8.4-10.2); Carbon Dioxide 30 mmol/L (22.0-30.0); Creatinine Clearance Estimated 44 mL/min (50-200); Estimated Glomerular Filt Rate 52 ml/min (>60); GFR (African American) 63 ML/MIN (>60); Globulin 2.9 g/dL (1.3-3.2); Glucose 102 mg/dl (74-100); Lipase 219 U/L (23-300); Total Protein,Serum 7.4 g/dl (6.3-8.2)
--- NOTE | 2021-08-20 14:00 | HMH.EDGENADL ---
ED Disposition Clinical Impression: Right lower quadrant pain Disposition: Home, Self-Care Condition on Discharge: Good Additional Instructions: Return for fever, recurrent pain, nausea with vomiting or diarrhea. Referrals: Rafa Colón MD [Primary Care Provider] - 3 days Time of Disposition: 14:03 - Critical Care Critical Care Time: No Attestation: On 08/20/21, the high probability of a clinically significant, sudden or life threatening deterioration of the following system(s) required my full and direct attention, intervention and personal management. The time I documented below is in addition to time spent performing reported procedures but includes the following listed in this critical care notation. Medical Decision Making - Medical Records Medical records reviewed: Yes: I reviewed the patient's medical records. - Reza Inquiry Pt receiving controlled substance: No Vital Signs: 08/20/21 12:29 Temperature 97.9 F Temperature Source Oral Pulse Rate [Left Radial] 76 Respiratory Rate 20 Blood Pressure [Right Arm] 182/102 H Blood Pressure Mean [Right Arm] 128 Blood Pressure Source [Right Arm] Automatic Cuff Blood Pressure Position [Right Arm] Sitting 02 Sat by Pulse Oximetry 99 Oxygen Delivery Method Room Air - Lab Data Lab results reviewed: Yes: I reviewed the patient's lab results. Lab Results 08/20/21 13:00: WBC 9.0, RBC 5.14, Hgb 15.7, Hct 46.5, MCV 90.4, MCH 30.6, MCHC 33.8, RDW 14.1, Plt Count 233, MPV 7.6, Neut % (Auto) 57.0, Lymph % (Auto) 32.0, Blackford % (Auto) 6.8, Eos % (Auto) 3.6, Baso % (Auto) 0.7, Neut # (Auto) 5.1, Lymph # (Auto) 2.9, Blackford # (Auto) 0.6, Eos # (Auto) 0.3, Baso # (Auto) 0.1 08/20/21 13:00: Sodium 139, Potassium 4.7, Chloride 101, Carbon Dioxide 30, Anion Gap 12.7, BUN 22 H, Creatinine 1.30 H, Estimated Creat Clear 44, Estimated GFR 52 L, Est GFR ( Amer) 63, Glucose 102 H, Calcium 10.2, Total Bilirubin 0.4, AST 31, ALT 17, Alkaline Phosphatase 99, Total Protein 7.4, Albumin 4.5, Globulin 2.9, Albumin/Globulin Ratio 1.6, Lipase 219 Result diagrams: 08/20/21 13:00 08/20/21 13:00 Orders (Tests/Meds): ORDERS Category Date Time Status Urinalysis and Microscopic Stat Lab 08/20/21 12:31 Ordered Medical Decision Narrative: 86yo M evaluated for right lower quadrant abdominal pain. Patient no acute distress on initial evaluation. Laboratory studies are collected and unremarkable. Upon my initial evaluation, he reports his symptoms have completely resolved. He is nontender to palpate throughout on his physical exam. He has no pain with full range of motion of bilateral lower extremities. No obturator sign or psoas sign. Patient is very pleasant and denies any further work-up at this time. General Adult HPI - General Chief complaint: PAIN Stated complaint: pain lower right side and abdomen Time Seen by Provider: 08/20/21 14:00 Mode of Arrival: Ambulatory Limitations: No Limitations Description of Symptoms (Recalled from ER Triage Doc. by RN): c/o LRQ pain that started off and on for over a year but the last night it started with a sharp stabbing pain. - History of Present Illness HPI narrative: 86yo M presents the emergency department secondary to right lower quadrant pain. Symptoms began after waking this morning. He denies any fall, twisting injury. Denies any previous surgery to that hip. Denies any history of kidney stone. Denies any fever, nausea/vomit/diarrhea. There is no radiation of his pain. Nothing exacerbated his pain. Nothing made his pain better. Reports normal bowel movement. Reports normal p.o. intake. - Related Data Home Medications Medication Instructions Recorded Confirmed temazepam 15 mg capsule 15 mg PO QHS cap 11/06/17 02/24/20 Metoprolol Tartrate 50 mg PO BID 08/12/18 02/24/20 amlodipine 5 mg tablet PO 12/02/19 02/24/20 terazosin 2 mg capsule mg PO 12/02/19 02/24/20 Allergies Allergy/AdvReac Type Severity Re
== END 2021-08-20 14:18 | disposition home or self-care (01) ==
PROVIDERS: Emergency Provider Family Medicine; PCP Internal Medicine Adolescent Medicine
DX: R10.31 Right lower quadrant pain (principal); I10 Essential (primary) hypertension; E78.5 Hyperlipidemia, unspecified; Z95.0 Presence of cardiac pacemaker; Z79.899 Other long term (current) drug therapy
CPT/HCPCS: 36415; 80053; 83690; 85025; 99282

== ENCOUNTER → 2021-11-09 07:57 | Outpatient (CLI) | payer MEDICARE, SELFPAY ==
--- NOTE | 2021-11-09 08:01 | CT_ITS ---
FINAL REPORT CLINICAL HISTORY: RIGHT SIDED NECK PAIN,CERVICAL RADICULOPATHY FINDINGS: Axial CT images of the cervical spine were obtained without contrast. Sagittal and coronal reformatted images were also obtained. This study was performed with techniques to keep radiation doses as low as reasonably achievable (ALARA). Individualized dose reduction techniques using automated exposure control or adjustment of mA and/or kV according to the patient's size were employed. There is no evidence of fracture or dislocation. The bony alignment is normal. There are moderate and severe degenerative changes. There is multilevel disc space narrowing and osteophyte formation. There is vacuum disc phenomenon at multiple levels. There is an enlarged left thyroid with coarse calcification and a possible nodule. Postoperative changes are seen in the right neck. C2-C3: There is a disc osteophyte complex with mild left neural foraminal narrowing. C3-C4: There is a disc osteophyte complex. There is severe right and moderate left neural foraminal narrowing. There is mild central canal stenosis with an AP thecal sac diameter of 8 mm. C4-C5: There is a disc osteophyte complex. There is severe right and mild left neural foraminal narrowing. C5-C6: There is a disc osteophyte complex with moderate bilateral neural foraminal narrowing. C6-C7: There is a disc osteophyte complex. There is moderate right and severe left neural foraminal narrowing. C7-T1: There is no significant canal stenosis or neural foraminal narrowing. IMPRESSION: Multilevel degenerative disc disease with areas of neural foraminal narrowing and central canal stenosis. Enlarged left thyroid with coarse calcifications and a possible nodule. This could be further evaluated with thyroid ultrasound. Reviewed, Interpreted and Dictated by Kalin Sheppard III, MD Transcribed by Bairon Gonzales Authenticated by Kalin Sheppard III, MD on 11/09/2021 09:16:41 AM [facility]
== END ==
PROVIDERS: PCP Internal Medicine Adolescent Medicine; Visit Provider Internal Medicine Adolescent Medicine
DX: M54.2 Cervicalgia (principal); M54.12 Radiculopathy, cervical region
CPT/HCPCS: 72125

== ENCOUNTER → 2022-01-09 09:52 | Outpatient (CLI) | payer MEDICARE, SELFPAY ==
--- NOTE | 2022-01-09 | CA_ITS ---
APPROVED REPORT EXAM: Comprehensive 2D, Doppler, and color-flow Echocardiogram Stock Manager: Dalia Neff RT(R) Ht: 5 ft 4 in Wt: 162lbs BSA: 1.79 BP: 143/89 mmHg Indications: cp, COPD, AVR (bovine 2011), HTN, AAA repair 2011 2D Dimensions LVOT 1.94 cm (M/F) 1.5-2.5 M-Mode Dimensions RVDd 3.22 cm (0.9-2.6) LA Diam 2.47 cm (1.9-4.0) LVDd 4.58 cm (3.5-5.7) Ao Diam 3.79 cm (2.0-3.7) LVDs 3.64 cm (3.5-5.7) IVSd 0.97 cm (0.6-1.1) PWd 0.81 cm (0.6-1.1) EF (Teich) 42.00% FS 20.50% EDV (Teich) 96.30 mL ESV (Teich) 55.90 mL LV Diastology E Decel Time 197.00 (160-240 msec) E/A Ratio 0.8 MED E' 6.30 (< 7 cm/sec) E'/MED E' Ratio 14.38 (>14) LAT E' 7.40 (<10 cm/sec) E/LAT E' Ratio 12.24 (>14) Aortic Valve LVOT Max 99.00 (70-110 cm/s) LVOT VTI 19.68 cm AoV Peak Christophe. 268.00 (50-130 cm/s) AO Peak GR. 29.00 mmHg AO Mean GR. 14.20 (<5 mmHg) AO VTI 50.80 (18-25 cm) KAYLEE (VTI) 1.15 (2.5-4.5 cm2) Mitral Valve MV E Max Christophe. 91.00 (40-130 cm/s) MV A Velocity 120.00 (40-130 cm/s) E/A Ratio 0.76 MV Decel. Time 197.00 (160-240 ms) MV PHT 58.00 ms Left Ventricle Left atrium is mildly enlarged, left ventricle is normal size, mild concentric left ventricular hypertrophy, estimated ejection fraction 55% with no regional wall motion abnormality, grade 1 diastolic dysfunction seen without tissue Doppler evidence of raise left atrial pressure. Right Ventricle Right atrium and right ventricle are mildly enlarged with normal contractility. Aortic Valve There is a bioprosthetic valve noted in the aortic position valve is well-seated, the mean gradient across valve is 13 mmHg which is in acceptable range for prosthetic valve, there is no significant aortic outflow obstruction or aortic insufficiency. Mitral Valve Mitral valve has mitral calcification, leaflets are minimally thickened, there is mild mitral regurgitation. Tricuspid Valve Tricuspid grossly normal, there is mild tricuspid regurgitation, tricuspid rotation jet velocity is inadequate for calculation of the right ventricular systolic pressure. Pulmonic Valve Pulmonic valve is poorly visualized. Great Vessels Aortic root is normal size. Inferior vena cava is poorly visualized. Pericardium No significant pericardial effusion noted. Conclusion 1. Mild biatrial enlargement, normal left ventricular size, mild concentric left ventricular hypertrophy, estimated ejection fraction 55% with no regional wall motion abnormality, grade 1 diastolic dysfunction seen without tissue Doppler evidence of raise left atrial pressure. 2. Mildly enlarged right ventricle with normal contractility. 3. Normal functioning bioprosthetic valve in the aortic position without aortic outflow obstruction or aortic insufficiency. 4. Mild mitral and tricuspid regurgitation. 5. No significant pericardial effusion noted. 6. Inferior vena cava is normal size. Electronically signed by : Sherif Hutton MD 01/09/2022 19:27:24
== END ==
PROVIDERS: PCP Internal Medicine Adolescent Medicine; Visit Provider Internal Medicine Adolescent Medicine
DX: Z95.2 Presence of prosthetic heart valve (principal)
CPT/HCPCS: 93306

== ENCOUNTER 2022-09-30 06:03 | Emergency (ER) | payer MEDICARE, SELFPAY ==
[2022-09-30 06:05] VITALS: BP 168/107; PULSE 72; RESP 16; TEMP 36.4; O2SAT 99; BMI 30.1
--- NOTE | 2022-09-30 06:14 | XR_ITS ---
FINAL REPORT CLINICAL HISTORY: dizziness, headache FINDINGS: 2 views of the chest were obtained . The heart is normal in size. Patient is status post median sternotomy. There is a left subclavian pacemaker in place. The mediastinum is within normal limits. The lungs are clear. There is no pneumothorax. Osseous structures are unremarkable. IMPRESSION: No acute cardiopulmonary process. Reviewed, Interpreted and Dictated by Kalin Sheppard III, MD Transcribed by Maia Cotto Authenticated and [facility]
--- NOTE | 2022-09-30 06:19 | ECG_ITS ---
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
[2022-09-30 06:26] VITALS: BP 154/97; PULSE 72; O2SAT 99
[2022-09-30 06:30] VITALS: BP 131/87; PULSE 70; O2SAT 98
[2022-09-30 06:33] LABS: Basophils # 0.1 K/mm3 (0-0.2); Basophils % 1.3 % (0.1-2.0); Eosinophils # 0.4 K/mm3 (0.0-0.4); Hematocrit 44.8 % (42.0-52.0); Hemoglobin 14.7 g/dL (14.1-18.0); Lymphocytes # 2.7 K/mm3 (0.7-4.5); Lymphocytes % 30.7 % (10-50); Mean Corpuscular HGB Conc 32.8 g/dL (31.8-35.4); Mean Corpuscular Volume 91.5 fl (80-94); Mean Platelet Volume 7.8 fl (7.4-10.4); Monocytes # 0.7 K/mm3 (0.1-1.0); Monocytes % 7.7 % (1.7-9.3); Neutrophils % 56.3 % (37.0-80.0); Platelet Count 229 K/mm3 (142-424); Red Blood Count 4.89 M/mm3 (4.60-6.20); Red Cell Distribution Width 14.1 % (11.5-17.5); White Blood Count 8.9 K/mm3 (4.8-10.8)
--- NOTE | 2022-09-30 06:46 | PC.NURSE ---
Pt out of room to RAD @ this time.
[2022-09-30 06:50] LABS: Alanine Aminotransferase 22 U/L (12-78); Albumin Level 4.3 g/dl (3.5-5.0); Albumin/Globulin Ratio 1.4 (1.1-1.8); Alkaline Phosphatase 91 U/L (38-126); Anion Gap 11.3 mEq/L (5-15); Aspartate Amino Transferase 27 U/L (17-59); Bilirubin,Total 0.6 mg/dl (0.2-1.3); Blood Urea Nitrogen 24 mg/dl (9-20); Calcium 8.7 mg/dl (8.4-10.2); Carbon Dioxide 28 mmol/L (22.0-30.0); Chloride 102 mmol/L (98-107); Creatinine Clearance Estimated 44 mL/min (50-200); Estimated Glomerular Filt Rate 52 ml/min (>60); GFR (African American) 63 ML/MIN (>60); Glucose 118 mg/dl (74-100); Potassium 4.3 mmoL/L (3.5-5.1); Sodium 137 mmol/L (136-145); Total Protein,Serum 7.3 g/dl (6.3-8.2)
--- NOTE | 2022-09-30 06:54 | PC.NURSE ---
Pt back to room @ this time from RAD.
[2022-09-30 07:03] LABS: Troponin I < 0.01 ng/ml (0.00-0.034)
[2022-09-30 07:11] LABS: Erythrocyte Sedimentation Rate 15 mm/hr (0-20)
--- NOTE | 2022-09-30 07:28 | HMH.EDDIZZ ---
Discharge Plan Disposition Patient Disposition: Home, Self-Care Chief Complaint: Dizziness Prescriptions Prescriptions: No Action temazepam 15 mg capsule 15 mg PO QHS terazosin 2 mg capsule PO amlodipine 2.5 mg tablet 2.5 mg PO gabapentin 300 mg capsule 300 mg PO lovastatin 40 mg tablet 40 mg PO fluticasone propionate 50 mcg/actuation spray,suspension NS metoprolol tartrate 50 MG tablet 50 mg PO BID Referrals Follow up/Referrals: Sissy Reyes APRN [Primary Care Provider] - See instructions Clinical Impressions Clinical Impression: Dizziness Instructions Patient Instructions: Dizziness, Nonvertigo Discharge ED Provider: Dennis Mcdanielsy HPI General Chief Complaint: Dizziness Stated Complaint: High BP Time Seen by Provider: 09/30/22 07:28 Mode of Arrival: Ambulatory Source of Information: Patient, Spouse and Medical Record Limitations: No Limitations Description of Symptoms (Recalled from ER Triage Doc. by RN): pt c/o Andrade, dizzy, and elevated blood pressure since yesterday. History of Present Illness HPI Narrative: pt had elevated bp this am and had feeling of mild dizzyness and diffuse andrade w/o fever/rash /trauma of focal neuro sx MD complaint: dizziness Onset (ago): hour(s) Timing: waxing/waning Description: lightheadedness History of similar episodes: No History of trauma: No Severity: moderate Relieving factors: nothing Exacerbating factors: nothing Associated symptoms: denies other symptoms Related Data Home Medications Medication Instructions Recorded Confirmed temazepam 15 mg capsule 15 mg PO QHS sleep 11/06/17 04/01/22 metoprolol tartrate 50 mg tablet 50 mg PO BID Hypertension 08/12/18 04/01/22 terazosin 2 mg capsule mg PO 12/02/19 04/01/22 amlodipine 2.5 mg tablet 2.5 mg PO 04/01/22 04/01/22 fluticasone propionate 50 intranasal 04/01/22 04/01/22 mcg/actuation nasal spray,suspension gabapentin 300 mg capsule 300 mg PO 04/01/22 04/01/22 lovastatin 40 mg tablet 40 mg PO 04/01/22 04/01/22 Allergies Allergy/AdvReac Type Severity Reaction Status Date / Time ciprofloxacin Allergy Unknown Verified 04/01/22 14:47 carvedilol Allergy Verified 04/01/22 14:47 metronidazole Allergy Verified 04/01/22 14:47 midazolam [From Versed] Allergy Verified 04/01/22 14:47 sulfamethoxazole Allergy Verified 04/01/22 14:47 [From Bactrim] trimethoprim [From Bactrim] Allergy Verified 04/01/22 14:47 LISINOPRIL Allergy Intermediate Uncoded 12/02/19 13:16 OXYCODONE Allergy Intermediate Uncoded 12/02/19 13:16 LOSARTAN Allergy Mild Uncoded 12/02/19 13:16 PFSH COUNTS INCLUDE 234 BEDS AT THE [facility] Disclaimer: The information contained in this section may have been updated after the patient was seen, as this information can be updated by other users. Medical History (Updated 09/30/22 @ 07:33 by Dennis Mcdaniels MD) Cardiac pacemaker in situ Dyspnea HLD (hyperlipidemia) HTN (hypertension) Surgical History (Updated 06/16/18 @ 08:38 by Zuleika Reyes APRN) History of AAA (abdominal aortic aneurysm) repair History of aortic valve replacement Social History Smoking Status: Never smoker alcohol intake: never substance use type: denies use current occupational status: other Travel in the last 8 weeks: None household members: spouse housing: house caffeine: No ROS Obtained: Yes All systems reviewed & no additional complaints except as documented Physical Exam General General appearance: alert Head Head exam: normocephalic Eye Eye exam: Present PERRL and EOMI; Absent scleral icterus ENT ENT exam: Present mucous membranes moist and other (no temp art tenderness ) Neck Neck exam: Present trachea midline Respiratory Respiratory exam: Present normal lung sounds bilaterally; Absent respiratory distress Cardiovascular Cardiovascular exam: Present regular rate, systolic murmur and +S4 Abdominal Exam Abdominal exam: Present sof
[2022-09-30 07:45] VITALS: BP 152/92; PULSE 85; RESP 17; TEMP 36.7; O2SAT 98
== END 2022-09-30 07:48 | disposition home or self-care (01) ==
PROVIDERS: Emergency Provider Emergency Medicine; PCP Nurse Practitioner Family
DX: R42 Dizziness and giddiness (principal); I10 Essential (primary) hypertension; E78.5 Hyperlipidemia, unspecified; Z95.0 Presence of cardiac pacemaker
CPT/HCPCS: 36415; 71046; 80053; 84484; 85025; 85651; 93005; 99285

== ENCOUNTER 2022-12-23 10:13 | Emergency (ER) | payer MEDICARE, SELFPAY ==
[2022-12-23 10:15] VITALS: BP 134/77; PULSE 77; RESP 18; O2SAT 97; BMI 30.1
--- NOTE | 2022-12-23 10:59 | EXP.UTC ---
Discharge Plan Disposition Patient Disposition: Home, Self-Care Condition: Good Prescriptions Prescriptions: New doxycycline hyclate [doxycycline hyclate] 100 mg capsule 100 mg PO Q12 10 Days Qty: 20 0RF No Action temazepam 15 mg capsule 15 mg PO QHS Eliquis 5 mg tablet 5 mg PO BID amlodipine 2.5 mg tablet 2.5 mg PO DAILY fluticasone propionate 50 mcg/actuation spray,suspension 1 spray NS DAILY PRN gabapentin 300 mg capsule 300 mg PO DAILY lovastatin 40 mg tablet 40 mg PO DAILY metoprolol tartrate 50 mg tablet See Rx Instructions PO BID Rx Instructions: 75mg orally twice a day; terazosin 5 mg capsule 5 mg PO DAILY Referrals Follow up/Referrals: Provider,Referral, MD [Primary Care Provider] - See instructions Activity Restrictions/Add. Instructions Additional Instructions/Restrictions: Drink plenty of fluids. Take tylenol or ibuprofen for pain or fever. Take the medications as directed. Follow up with your regular doctor. GO TO THE ER FOR ANY WORSENING SYMPTOMS We will culture the urine. That will tell what bacteria is causing your infection and which antibiotics will treat it best. Sometimes the first antibiotic we prescribe turns out to not work against different bacteria. So, make sure you follow up within 3 days if you are not getting better. Make sure you follow up with your primary care physician to have your urine rechecked in a week or so to make sure the infection is getting better. If your symptoms don't begin to improve in a couple of days then follow up sooner. Clinical Impressions Clinical Impression: UTI (urinary tract infection) Instructions Patient Instructions: Urine Culture, DI for Urinary Tract Infection (UTI) Discharge ED Provider: Rafa Cee [facility] General Stated complaint: blood/ red urination Mode of Arrival: Ambulatory Source of Information: Patient Limitations: No Limitations Time Seen by Provider: 12/23/22 10:59 Description of Symptoms (Recalled from Triage Doc. by RN): c/o some blood in his urine with a pin point blood clot that started last night. Pt denies any abdomen pain, states he does have back pain but that is chronic with no change with that pain. Denies any frequent or painful urination. Was started on eliquis 6 months ago for his newly inserted pacemaker. History of Present Illness Provider Complaint: She states that for the past 3 days he has had intermittent hematuria and urinary frequency. He denies any fever or chills and states that he feels okay. Related Data Home Medications Medication Instructions Recorded Confirmed temazepam 15 mg capsule 15 mg PO QHS sleep 11/06/17 12/23/22 amlodipine 2.5 mg tablet 2.5 mg PO DAILY , 12/03/22 12/23/22 apixaban 5 mg tablet (Eliquis) 5 mg PO BID . 12/03/22 12/23/22 fluticasone propionate 50 1 spray intranasal DAILY PRN 12/03/22 12/03/22 mcg/actuation nasal spray,suspension gabapentin 300 mg capsule 300 mg PO DAILY , 12/03/22 12/23/22 lovastatin 40 mg tablet 40 mg PO DAILY 2 12/03/22 12/23/22 metoprolol tartrate 50 mg tablet See Rx Instructions PO BID 12/03/22 12/23/22 Hypertension terazosin 5 mg capsule 5 mg PO DAILY . 12/23/22 12/23/22 Previous Rx's Medication Instructions Recorded doxycycline hyclate 100 mg capsule 100 mg PO Q12 10 days #20 caps 12/23/22 Allergies Allergy/AdvReac Type Severity Reaction Status Date / Time ciprofloxacin Allergy Unknown Verified 12/23/22 11:07 carvedilol Allergy Verified 12/23/22 11:07 metronidazole Allergy Verified 12/23/22 11:07 midazolam [From Versed] Allergy Verified 12/23/22 11:07 sulfamethoxazole Allergy Verified 12/23/22 11:07 [From Bactrim] trimethoprim [From Bactrim] Allergy Verified 12/23/22 11:07 LISINOPRIL Allergy Intermediate Uncoded 12/03/22 14:24 OXYCODONE Allergy Intermediate Uncoded 12/03/22 14:24 LOSARTAN Allergy Mild Uncoded 12/03/22 14:24
[2022-12-23 11:01] VITALS: BP 134/77; PULSE 77; RESP 20; O2SAT 97; BMI 30.1
[2022-12-23 11:13] LABS: Apearance,Urine Turbid (Clear); Color,Urine Red (Yellow); Glucose,Urine (UA) Negative (Negative); Protein,Urine 1+ (Negative); Specific Gravity, Urine 1.015 (1.005-1.030)
[2022-12-23 11:14] LABS: Bilirubin,Urine 1+ (Negative); Blood, Urine 3+ (Negative); UTC Nitrate,Urine Negative (Negative)
[2022-12-23 11:52] VITALS: BP 134/77; PULSE 77; RESP 20; TEMP 36.8; O2SAT 97
[2022-12-23 11:53] LABS: Ketones,Urine 1+ (Negative); PH,Urine 5.5 (5.0-8.5); Urobilinogen,Urine 2 EU/dl (0.2)
[2022-12-23 11:54] LABS: UTC Leukocyte Esterase,Urine 2+ (Negative)
== END 2022-12-23 11:50 | disposition home or self-care (01) ==
PROVIDERS: Emergency Provider Nurse Practitioner Family
DX: N39.0 Urinary tract infection, site not specified (principal); R31.0 Gross hematuria
CPT/HCPCS: 81003; 87086; 99212; 99214; G0463

== ENCOUNTER 2023-01-12 09:36 | Emergency (ER) | payer MEDICARE, SELFPAY ==
[2023-01-12 09:45] VITALS: BP 159/102; PULSE 74; RESP 20; TEMP 36.8; O2SAT 99; BMI 28.3
--- NOTE | 2023-01-12 10:04 | EXP.UTC ---
Discharge Plan Disposition Patient Disposition: Home, Self-Care Condition: Good Prescriptions Prescriptions: No Action temazepam 15 mg capsule 15 mg PO QHS Eliquis 5 mg tablet 5 mg PO BID amlodipine 2.5 mg tablet 2.5 mg PO DAILY fluticasone propionate 50 mcg/actuation spray,suspension 1 spray NS DAILY PRN gabapentin 300 mg capsule 300 mg PO DAILY lovastatin 40 mg tablet 40 mg PO DAILY metoprolol tartrate 50 mg tablet See Rx Instructions PO BID Rx Instructions: 75mg orally twice a day; terazosin 5 mg capsule 5 mg PO DAILY doxycycline hyclate [doxycycline hyclate] 100 mg capsule 100 mg PO Q12 10 Days Qty: 20 0RF Referrals Follow up/Referrals: Provider,Referral, MD [Primary Care Provider] - See instructions Activity Restrictions/Add. Instructions Additional Instructions/Restrictions: Increase you amlodipine to 5 mg per day, (you are taking 2.5 mg daily at this time) Keep your other medication doseages the same for now. Call you director of restaurant and make sure they know about the doseage increase of your amlodopine. Follow up with them when they can see you. If you have any chest pain or other abnormal symptoms, please go straight to the ER. Clinical Impressions Clinical Impression: Hypertension Instructions Patient Instructions: Essential Hypertension Discharge ED Provider: Rafa Cee [facility] General Stated complaint: high blood pressure Mode of Arrival: Ambulatory Source of Information: Patient Limitations: No Limitations Time Seen by Provider: 01/12/23 10:04 Description of Symptoms (Recalled from Triage Doc. by RN): PATIENT STATES HE WOKE UP THIS MORNING NOT FEELING WELL AND WHEN HE TOOK HIS BLOOD PRESSURE AT HOME IT WAS APPROX 150/100. HE STATES HE WANTS TO GET CHECKED OUT HEENT Symptoms (Recalled from RN notes): No Resp Symptoms (Recalled from RN notes): No Skin Symptoms (Recalled from RN notes): No MS Symptoms (Recalled from RN notes): No Functional Status (Recalled from RN notes): WNL History of Present Illness Provider Complaint: He reports that he has ran elevated blood pressure since yesterday. He denies any chest pain. he states that his blood pressure has been running 150 - 165/90's. Normally he runs 130/80's. He denies any other complaints. Related Data Home Medications Medication Instructions Recorded Confirmed temazepam 15 mg capsule 15 mg PO QHS sleep 11/06/17 12/23/22 amlodipine 2.5 mg tablet 2.5 mg PO DAILY , 12/03/22 12/23/22 apixaban 5 mg tablet (Eliquis) 5 mg PO BID . 12/03/22 12/23/22 fluticasone propionate 50 1 spray intranasal DAILY PRN 12/03/22 12/03/22 mcg/actuation nasal spray,suspension gabapentin 300 mg capsule 300 mg PO DAILY , 12/03/22 12/23/22 lovastatin 40 mg tablet 40 mg PO DAILY 2 12/03/22 12/23/22 metoprolol tartrate 50 mg tablet See Rx Instructions PO BID 12/03/22 12/23/22 Hypertension terazosin 5 mg capsule 5 mg PO DAILY . 12/23/22 12/23/22 Previous Rx's Medication Instructions Recorded doxycycline hyclate 100 mg capsule 100 mg PO Q12 10 days #20 caps 12/23/22 Allergies Allergy/AdvReac Type Severity Reaction Status Date / Time ciprofloxacin Allergy Unknown Verified 12/23/22 11:07 carvedilol Allergy Verified 12/23/22 11:07 metronidazole Allergy Verified 12/23/22 11:07 midazolam [From Versed] Allergy Verified 12/23/22 11:07 sulfamethoxazole Allergy Verified 12/23/22 11:07 [From Bactrim] trimethoprim [From Bactrim] Allergy Verified 12/23/22 11:07 LISINOPRIL Allergy Intermediate Uncoded 12/03/22 14:24 OXYCODONE Allergy Intermediate Uncoded 12/03/22 14:24 LOSARTAN Allergy Mild Uncoded 12/03/22 14:24 Worker's Comp Is this a Worker's Comp case?: No [facility] Disclaimer: The information contained in this section may have been updated after the patient was seen, as this information can be updated by other users. Medical History (Re
--- NOTE | 2023-01-12 10:08 | ECG_ITS ---
APPROVED REPORT Exam: Resting ECG HR:69 bpm ECG Measurements Heart Rate 69 AXES [place] 215 P 98 QRSd 106 QRS -67 QT 397 T 22 QTc 417 Conclusion ELECTRONIC ATRIAL PACEMAKER INFERIOR MYOCARDIAL INFARCTION , PROBABLY OLD [40+ ms Q WAVE AND/OR ST/T ABNORMALITY IN II/aVF] ABNORMAL ECG UNCONFIRMED REPORT Electronically signed by : Alex García MD 01/13/2023 19:44:34
[2023-01-12 10:40] LABS: Basophils % 0.6 % (0.1-2.0); Eosinophils # 0.2 K/mm3 (0.0-0.4); Eosinophils % 2.2 % (0.1-12.0); Hematocrit 46.3 % (42.0-52.0); Hemoglobin 15.1 g/dL (14.1-18.0); Lymphocytes # 2.3 K/mm3 (0.7-4.5); Lymphocytes % 30.6 % (10-50); Mean Corpuscular HGB Conc 32.7 g/dL (31.8-35.4); Mean Corpuscular Hemoglobin 30.3 pg (27.0-31.2); Mean Corpuscular Volume 92.7 fl (80-94); Mean Platelet Volume 7.7 fl (7.4-10.4); Monocytes # 0.5 K/mm3 (0.1-1.0); Monocytes % 6.2 % (1.7-9.3); Neutrophils # 4.6 K/mm3 (1.8-7.8); Neutrophils % 60.5 % (37.0-80.0); Platelet Count 191 K/mm3 (142-424); Red Blood Count 4.99 M/mm3 (4.60-6.20); Red Cell Distribution Width 14.2 % (11.5-17.5); White Blood Count 7.6 K/mm3 (4.8-10.8)
[2023-01-12 10:45] LABS: Chloride 101 mmol/L (98-107); Potassium 4.5 mmoL/L (3.5-5.1); Sodium 137 mmol/L (136-145)
[2023-01-12 10:48] LABS: Anion Gap 8.5 mEq/L (5-15); Blood Urea Nitrogen 19 mg/dl (9-20); Calcium 8.8 mg/dl (8.4-10.2); Carbon Dioxide 32 mmol/L (22.0-30.0); Creatinine Clearance Estimated 45 mL/min (50-200); Estimated Glomerular Filt Rate 57 ml/min (>60); GFR (African American) 69 ML/MIN (>60); Glucose 102 mg/dl (74-100)
[2023-01-12 10:52] VITALS: BP 159/102; PULSE 74; RESP 20; TEMP 36.8; O2SAT 99
== END 2023-01-12 11:13 | disposition home or self-care (01) ==
PROVIDERS: Emergency Provider Nurse Practitioner Family
DX: I10 Essential (primary) hypertension (principal); E78.5 Hyperlipidemia, unspecified; Z95.0 Presence of cardiac pacemaker
CPT/HCPCS: 80048; 85025; 93005; 99212; 99214; G0463

== ENCOUNTER 2023-01-30 10:08 | Emergency (ER) | payer MEDICARE, SELFPAY ==
[2023-01-30 10:09] VITALS: BP 187/92; PULSE 75; RESP 16; O2SAT 99; BMI 30.9
--- NOTE | 2023-01-30 10:32 | EXP.UTC ---
Discharge Plan Disposition Patient Disposition: Home, Self-Care Condition: Good Prescriptions Prescriptions: No Action temazepam 15 mg capsule 15 mg PO QHS Eliquis 5 mg tablet 5 mg PO BID amlodipine 2.5 mg tablet 2.5 mg PO DAILY fluticasone propionate 50 mcg/actuation spray,suspension 1 spray NS DAILY PRN gabapentin 300 mg capsule 300 mg PO DAILY lovastatin 40 mg tablet 40 mg PO DAILY metoprolol tartrate 50 mg tablet See Rx Instructions PO BID Rx Instructions: 75mg orally twice a day; terazosin 5 mg capsule 5 mg PO DAILY doxycycline hyclate [doxycycline hyclate] 100 mg capsule 100 mg PO Q12 10 Days Qty: 20 0RF Referrals Follow up/Referrals: Provider,Referral, MD [Primary Care Provider] - See instructions Activity Restrictions/Add. Instructions Additional Instructions/Restrictions: Keep the wound clean and dry. Keep a dressing on it if you are going to be getting it dirty. Watch the wound for signs of infection, such as redness, swelling, drainage, fever. etc. Take tylenol for pain. Follow up with your regular doctor. GO TO THE ER FOR ANY WORSENING SYMPTOMS OR CONCERNS. Clinical Impressions Clinical Impression: Crushing injury of right thumb, Laceration of right thumb Instructions Patient Instructions: DI for Crush Injury, DI for Avulsion Laceration (Not Requiring Sutures) Discharge ED Provider: Rafa Cee [facility] General Stated complaint: AO@home 01/30 LT thumb pain w/lesion Mode of Arrival: Ambulatory Limitations: No Limitations Time Seen by Provider: 01/30/23 10:32 Description of Symptoms (Recalled from Triage Doc. by RN): pt c/o pain to L thumb, pt reports smashed thumb in a citrus squeezer . NO active bleeding noted from open area on pts thumb. History of Present Illness Provider Complaint: He states that this am he got his right thumb caught in his juice squeezer. He c/o right thumb pain. He has a small cut on the thumb where the skin was pinched. He denies other injury. His tetanus immunization is not up to date. Related Data Home Medications Medication Instructions Recorded Confirmed temazepam 15 mg capsule 15 mg PO QHS sleep 11/06/17 12/23/22 amlodipine 2.5 mg tablet 2.5 mg PO DAILY , 12/03/22 12/23/22 apixaban 5 mg tablet (Eliquis) 5 mg PO BID . 12/03/22 12/23/22 fluticasone propionate 50 1 spray intranasal DAILY PRN 12/03/22 12/03/22 mcg/actuation nasal spray,suspension gabapentin 300 mg capsule 300 mg PO DAILY , 12/03/22 12/23/22 lovastatin 40 mg tablet 40 mg PO DAILY 2 12/03/22 12/23/22 metoprolol tartrate 50 mg tablet See Rx Instructions PO BID 12/03/22 12/23/22 Hypertension terazosin 5 mg capsule 5 mg PO DAILY . 12/23/22 12/23/22 Previous Rx's Medication Instructions Recorded doxycycline hyclate 100 mg capsule 100 mg PO Q12 10 days #20 caps 12/23/22 Allergies Allergy/AdvReac Type Severity Reaction Status Date / Time ciprofloxacin Allergy Unknown Verified 12/23/22 11:07 carvedilol Allergy Verified 12/23/22 11:07 metronidazole Allergy Verified 12/23/22 11:07 midazolam [From Versed] Allergy Verified 12/23/22 11:07 sulfamethoxazole Allergy Verified 12/23/22 11:07 [From Bactrim] trimethoprim [From Bactrim] Allergy Verified 12/23/22 11:07 LISINOPRIL Allergy Intermediate Uncoded 12/03/22 14:24 OXYCODONE Allergy Intermediate Uncoded 12/03/22 14:24 LOSARTAN Allergy Mild Uncoded 12/03/22 14:24 [facility] Disclaimer: The information contained in this section may have been updated after the patient was seen, as this information can be updated by other users. Medical History Cardiac pacemaker in situ Dyspnea HLD (hyperlipidemia) HTN (hypertension) Surgical History History of AAA (abdominal aortic aneurysm) repair History of aortic valve replacement Social H
--- NOTE | 2023-01-30 11:03 | XR_ITS ---
FINAL REPORT CLINICAL HISTORY: cut FINDINGS: Left hand Three views were obtained. There is no acute fracture or dislocation. There is mild deformity of the 1st distal phalanx, likely due to old fracture. Scattered degenerative changes are identified. There is no foreign body. No soft tissue abnormality is identified. IMPRESSION: No acute process. Reviewed, Interpreted and Dictated by Jorge Gordillo MD Transcribed by Tangela Chow Authenticated and [facility]
[2023-01-30 11:28] VITALS: BP 159/86; PULSE 71; RESP 18; TEMP 36.8
== END 2023-01-30 11:33 | disposition home or self-care (01) ==
PROVIDERS: Emergency Provider Nurse Practitioner Family
DX: S67.01XA Crushing injury of right thumb, initial encounter (principal); S61.011A Laceration without foreign body of right thumb without damage to nail, initial encounter; I10 Essential (primary) hypertension; E78.5 Hyperlipidemia, unspecified; Z95.0 Presence of cardiac pacemaker; W23.2XXA Caught, crushed, jammed or pinched between a moving and stationary object, initial encounter; Z23 Encounter for immunization
CPT/HCPCS: 73130; 90471; 90714; 96372; 99212; 99214; G0463

== ENCOUNTER → 2023-04-25 12:00 | Outpatient (CLI) | payer MEDICARE, SELFPAY ==
--- NOTE | 2023-04-25 12:07 | XR_ITS ---
FINAL REPORT CLINICAL HISTORY: low back pain FINDINGS: LUMBAR SPINE Three views demonstrate no acute fracture. There are severe degenerative changes. Multilevel osteophytes are identified. There is moderate vascular calcification. There is fusion in the lower lumbar spine. There is a probable abdominal aortic aneurysm. IMPRESSION: Multilevel degenerative changes as above. Probable abdominal aortic aneurysm. Recommend CT of the abdomen and pelvis with contrast. Reviewed, Interpreted and Dictated by Kalin Sheppard III, MD Transcribed by Tangela Chow Authenticated and [facility]
== END ==
PROVIDERS: Visit Provider Orthopaedic Surgery
DX: M54.50 Low back pain, unspecified (principal)
CPT/HCPCS: 72100

== ENCOUNTER → 2023-06-02 14:24 | Outpatient (CLI) | payer MEDICARE, SELFPAY ==
--- NOTE | 2023-06-02 14:29 | CT_ITS ---
FINAL REPORT TECHNIQUE: Axial imaging of the lumbar spine was obtained without contrast. Sagittal and coronal reformatted images were also obtained and reviewed. This study was performed with techniques to keep radiation doses as low as reasonably achievable (ALARA). Individualized dose reduction techniques using automated exposure control or adjustment of mA and/or kV according to the patient's size were employed. CLINICAL HISTORY: Low Back Pain COMPARISON: None FINDINGS: There is no fracture. The vertebral alignment is normal. There are severe degenerative changes in the lumbar spine. There is mild retrolisthesis of L3 on L4. There has been a prior posterior fusion at the L2-3, L3-4, and L4-5 levels. There is a 3.6 cm infrarenal abdominal aortic aneurysm present.. T11-12: An annular bulge is present as well as osteophytes. T12-L1: Annular bulge is present with facet osteoarthropathy and osteophytes. L1-L2: An annular bulge is present with facet osteoarthropathy and osteophytes. There is mild right and moderate left neural foraminal narrowing. L2-L3: Posterior fusion has been performed at this level. There is a disc bulge with facet osteoarthropathy and osteophytes. Moderate bilateral neural foraminal narrowing is present. L3-L4: Posterior fusion has been performed at this level. There is a disc bulge with facet osteoarthropathy and osteophytes, as well as severe bilateral neural foraminal narrowing. L4-L5: Posterior fusion has been performed at this level. There is an annular bulge present with facet osteoarthropathy and osteophytes, producing severe right and moderate left neural foraminal narrowing. L5-S1: An annular bulge is present with facet osteoarthropathy and osteophytes. There is severe bilateral neural foraminal narrowing. Spurring is present in the SI joints bilaterally. IMPRESSION: Prior posterior fusion performed at the L2-3, L3-4, and L4-5 levels. There are severe degenerative changes noted throughout the lumbar spine, particularly at the L3-4, L4-5, and L5-S1 levels. 3.6 cm infrarenal abdominal aortic aneurysm is present.. Reviewed, Interpreted and Dictated by Kalin Sheppard III, MD Transcribed by Crystal Olson Authenticated and [facility]
== END ==
PROVIDERS: Visit Provider Orthopaedic Surgery
DX: M54.50 Low back pain, unspecified (principal)
CPT/HCPCS: 72131

== ENCOUNTER 2024-02-17 15:06 | Emergency (ER) | payer OTHER, SELFPAY ==
--- NOTE | 2024-02-17 15:40 | XR_ITS ---
PROCEDURE INFORMATION: Exam: XR Left Elbow Exam date and time: 02/17/2024 3:50 PM Age: 88 years old Clinical indication: Pain; Elbow; Left; Additional info: Fell TECHNIQUE: Imaging protocol: Radiologic exam of the left elbow. Views: 3 or more views. COMPARISON: CR XR FOREARM LT 2V 02/17/2024 3:48 PM FINDINGS: Bones/joints: No acute fracture or malalignment. No joint effusion. Soft tissues: Normal. IMPRESSION: No acute osseous findings.
--- NOTE | 2024-02-17 15:40 | XR_ITS ---
PROCEDURE INFORMATION: Exam: XR Right Hand Exam date and time: 02/17/2024 3:51 PM Age: 88 years old Clinical indication: Pain; Hand; Right; Additional info: Fell TECHNIQUE: Imaging protocol: Radiologic exam of the right hand. Views: 1 or 2 views. COMPARISON: No relevant prior studies available. FINDINGS: Bones/joints: No acute fracture or malalignment. 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 Soft tissues: Normal. IMPRESSION: No acute osseous findings.
--- NOTE | 2024-02-17 15:40 | XR_ITS ---
PROCEDURE INFORMATION: Exam: XR Left Forearm Exam date and time: 02/17/2024 3:48 PM Age: 88 years old Clinical indication: Pain; Lower or forearm; Left; Additional info: Fell TECHNIQUE: Imaging protocol: Radiologic exam of the left forearm. Views: 2 views. COMPARISON: CR XR WRIST LT MIN 3V 02/17/2024 3:46 PM FINDINGS: Bones/joints: No acute fracture or malalignment. Soft tissues: Normal. IMPRESSION: No acute osseous findings.
--- NOTE | 2024-02-17 15:40 | XR_ITS ---
PROCEDURE INFORMATION: Exam: XR Left Humerus Exam date and time: 02/17/2024 3:56 PM Age: 88 years old Clinical indication: Pain; Upper arm; Left; Additional info: Fell TECHNIQUE: Imaging protocol: Radiologic exam of the left humerus. Views: 2 or more views. COMPARISON: CR XR ELBOW LT MIN 3V 02/17/2024 3:50 PM FINDINGS: Bones/joints: No acute fracture or malalignment. Soft tissues: Normal. IMPRESSION: No acute osseous findings.
--- NOTE | 2024-02-17 15:40 | XR_ITS ---
PROCEDURE INFORMATION: Exam: XR Right Wrist Exam date and time: 02/17/2024 3:53 PM Age: 88 years old Clinical indication: Injury or trauma; Fall; Blunt trauma (contusions or hematomas); Wrist; Right; Additional info: Fell TECHNIQUE: Imaging protocol: Radiologic exam of the right wrist. Views: 3 or more views. COMPARISON: CR XR HAND RT 2V 02/17/2024 3:51 PM FINDINGS: Bones/joints: No acute fracture or malalignment. Severe triscaphe joint osteoarthritis. Soft tissues: Normal. IMPRESSION: No acute osseous findings.
--- NOTE | 2024-02-17 15:40 | XR_ITS ---
PROCEDURE INFORMATION: Exam: XR Left Hand Exam date and time: 02/17/2024 3:44 PM Age: 88 years old Clinical indication: Pain; Hand; Left; Additional info: Fell TECHNIQUE: Imaging protocol: Radiologic exam of the left hand. Views: 1 or 2 views. COMPARISON: CR XR HAND LT MIN 3V 01/30/2023 11:04 AM FINDINGS: Bones/joints: No acute fracture or malalignment. Osteoarthritis. Soft tissues: Normal. IMPRESSION: No acute osseous findings.
--- NOTE | 2024-02-17 15:40 | XR_ITS ---
PROCEDURE INFORMATION: Exam: XR Left Wrist Exam date and time: 02/17/2024 3:46 PM Age: 88 years old Clinical indication: Pain; Wrist; Left; Additional info: Fell TECHNIQUE: Imaging protocol: Radiologic exam of the left wrist. Views: 3 or more views. COMPARISON: CR XR HAND LT 2V 02/17/2024 3:44 PM FINDINGS: Bones/joints: No acute fracture or malalignment. Soft tissues: Normal. IMPRESSION: No acute osseous findings.
[2024-02-17 16:05] VITALS: BP 160/86; PULSE 82; RESP 18; TEMP 36.6; O2SAT 100; BMI 24.1
--- NOTE | 2024-02-17 16:22 | ED_ITS ---
Discharge Plan Disposition Patient Disposition: Home, Self-Care Condition: Good Prescriptions Prescriptions: No Action temazepam 15 mg capsule 15 mg PO QHS Eliquis 5 mg tablet 5 mg PO BID fluticasone propionate 50 mcg/actuation spray,suspension 1 spray NS DAILY PRN (Reason: allergies) gabapentin 300 mg capsule 300 mg PO DAILY lovastatin 40 mg tablet 40 mg PO DAILY metoprolol tartrate 50 mg tablet See Rx Instructions PO BID Rx Instructions: 75mg orally twice a day; terazosin 5 mg capsule 5 mg PO DAILY Referrals Follow up/Referrals: Silvino Rosado DO [Staff Physician] - See instructions Provider,Referral, [Primary Care Provider] - See instructions Activity Restrictions/Add. Instructions Additional Instructions/Restrictions: Rest the extremity, Wear the jhony wrap for compression, Elevate the extremity as tolerated while you are resting. Take tylenol for pain. Follow up with Dr. Rosado if you continue to have symptoms. I put in a referral but you need to call his office and schedule an appointment. Follow up with your regular doctor. GO TO THE ER FOR ANY WORSENING SYMPTOMS Clinical Impressions Clinical Impression: Left wrist sprain, Sprain of left hand Instructions Patient Instructions: DI for Wrist Sprain, DI for Hand Injury, How to Apply an Elastic Wrap on Wrist Discharge ED Provider: Rafa Cee [facility] General Stated complaint: AO 02/17/24 1300 injury to hands,wrist area Time Seen by Provider: 02/17/24 16:21 History of Present Illness Provider Complaint: He states that he fell forward about about 2 hours ago and came down on his bilateral hands and wrists. Related Data Home Medications Medication Instructions Recorded Confirmed temazepam 15 mg capsule 15 mg PO QHS sleep 11/06/17 02/17/24 apixaban 5 mg tablet (Eliquis) 5 mg PO BID . 12/03/22 02/17/24 fluticasone propionate 50 1 spray intranasal DAILY PRN 12/03/22 02/17/24 mcg/actuation nasal allergies spray,suspension gabapentin 300 mg capsule 300 mg PO DAILY , 12/03/22 02/17/24 lovastatin 40 mg tablet 40 mg PO DAILY 2 12/03/22 02/17/24 metoprolol tartrate 50 mg tablet See Rx Instructions PO BID 12/03/22 02/17/24 Hypertension terazosin 5 mg capsule 5 mg PO DAILY . 04/03/23 05/28/24 Allergies Allergy/AdvReac Type Severity Reaction Status Date / Time ciprofloxacin Allergy Unknown Verified 02/17/24 16:37 carvedilol Allergy Verified 02/17/24 16:37 metronidazole Allergy Verified 02/17/24 16:37 midazolam [From Versed] Allergy Verified 02/17/24 16:37 sulfamethoxazole Allergy Verified 02/17/24 16:37 [From Bactrim] trimethoprim [From Bactrim] Allergy Verified 02/17/24 16:37 LISINOPRIL Allergy Intermediate Uncoded 04/25/23 12:30 OXYCODONE Allergy Intermediate Uncoded 04/25/23 12:30 LOSARTAN Allergy Mild Uncoded 04/25/23 12:30 PFSH PFS Disclaimer: The information contained in this section may have been updated after the patient was seen, as this information can be updated by other users. Medical History HLD (hyperlipidemia) HTN (hypertension) Cardiac pacemaker in situ Dyspnea Surgical History History of AAA (abdominal aortic aneurysm) repair History of aortic valve replacement Social History Smoking Status: Never smoker alcohol intake: never substance use type: denies use current occupational status: other Travel in the last 8 weeks: None household members: spouse housing: house caffeine: No ROS Obtained: Yes All systems reviewed & no additional complaints except as documented Constitutional Constitutional: Denies chills and Denies fever(s) Eyes Eyes: Denies eye discharge ENT Ears, Nose, Mouth, and Throat: Denies dizziness, Denies otalgia and Denies sore throat Cardiovascular Cardiovascular: Denies chest pain Respiratory Respiratory: Denies shortness of breath, Denies chest congestion, Denies cough, Denies stridor and Denies wheezing Gastrointestinal Gastrointestingal: Denies nausea or vomiting Musculoskeletal Musculoskeletal: Reports as per HPI Integumentary/Breasts Skin/Breast: Reports as per HPI Neurologic Neurologic: Denies dizziness and Denies paresthesias Allergic/Immunologic Allergic/Immunologic: Denies wheezing Physical Exam General General appearance: alert and in no apparent distress Head Head exam: atraumatic, normocephalic and normal inspection Eye Eye exam: Present normal appearance, PERRL and EOMI ENT ENT exam: Present normal exam, normal oropharynx, mucous membranes moist, TM's normal bilaterally and normal external ear exam Neck Neck exam: Present normal inspection, full ROM and trachea midline; Absent meningismus or lymphadenopathy Chest Chest inspection: Present normal inspection and symmetric chest wall rise; Absent tenderness Respiratory Respiratory exam: Present normal lung sounds bilaterally; Absent respiratory distress Cardiovascular Cardiovascular exam: Present regular rate and normal rhythm; Absent JVD Abdominal Exam Abdominal exam: Present soft and normal bowel sounds; Absent distention, tenderness or guarding Extremities Exam Extremities exam: Present normal inspection, full ROM and normal capillary refill; Absent calf tenderness Back Exam Back exam: Present normal inspection; Absent tenderness Neurological Exam Neurological exam: Present alert and oriented X3 Psychiatric Psychiatric exam: Present normal affect and normal mood Skin Skin exam: Present warm, dry, intact and normal color Lymphatic Lymphatic Findings: no adenopathy Medical Decision Making Medical Records Medical records reviewed: No I reviewed the patient's medical records. Reza Inquiry Pt receiving controlled substance: No Orders (Tests/Meds): ORDERS Category Date Time Status Humerus XR left [XR humerus LT] Stat Exams 02/17/24 15:40 Taken XR elbow LT min 3V Stat Exams 02/17/24 15:40 Taken XR forearm LT 2V Stat Exams 02/17/24 15:40 Taken XR hand LT 2V Stat Exams 02/17/24 15:40 Taken XR hand RT 2V Stat Exams 02/17/24 15:40 Taken XR wrist LT min 3V Stat Exams 02/17/24 15:40 Taken XR wrist RT min 3V Stat Exams 02/17/24 15:40 Taken
[2024-02-17 17:26] VITALS: BP 160/86; PULSE 82; RESP 18; TEMP 36.6; O2SAT 100
== END 2024-02-17 17:26 | disposition home or self-care (01) ==
PROVIDERS: Emergency Provider Nurse Practitioner Family
DX: S63.502A Unspecified sprain of left wrist, initial encounter (principal); S63.92XA Sprain of unspecified part of left wrist and hand, initial encounter; W19.XXXA Unspecified fall, initial encounter
CPT/HCPCS: 73060; 73080; 73090; 73110; 73120; 99212; 99214; G0463

== ENCOUNTER 2024-04-26 09:32 | Outpatient (RCR) | payer MEDICARE, SELFPAY | END 2024-04-26 09:35 | disposition home or self-care (01) | LOC: OT 09:32 | PROVIDERS: Visit Provider Nurse Practitioner Family | DX: M77.8 Other enthesopathies, not elsewhere classified (principal) | CPT/HCPCS: 97140; 97165 ==

== ENCOUNTER 2024-09-15 08:38 | Emergency (ER) | payer MEDICARE, SELFPAY ==
[2024-09-15 08:39] VITALS: BP 155/88; PULSE 64; RESP 18; TEMP 36.6; O2SAT 99; BMI 28.3
--- NOTE | 2024-09-15 09:44 | HMH.EDGENADL ---
Discharge Plan Disposition Patient Disposition: Home, Self-Care Prescriptions Prescriptions: No Action Eliquis 5 mg tablet 5 mg PO BID fluticasone propionate 50 mcg/actuation spray,suspension 1 spray NS DAILY PRN (Reason: allergies) gabapentin 300 mg capsule 300 mg PO DAILY lovastatin 40 mg tablet 40 mg PO DAILY metoprolol tartrate 50 mg tablet See Rx Instructions PO BID Rx Instructions: 75mg orally twice a day; terazosin 5 mg capsule 5 mg PO DAILY Referrals Follow up/Referrals: Sissy Rudolph APRN [Primary Care Provider] - See instructions Activity Restrictions/Add. Instructions Additional Instructions/Restrictions: At this time it was felt you are safe to be discharged home. If new or worsening symptoms please do not hesitate to return the emergency department. As discussed please take your amlodipine 2.5 mg every morning, check your blood pressure 2 hours after you take your blood pressure medicines in the morning and check your blood pressure every night and write it down so when you follow-up with your family doctor next week they can adjust your medications or change them. If your top blood pressure number is below 90 please do not take amlodipine anymore. Clinical Impressions Clinical Impression: HTN (hypertension) Print Language Print Language: Macedonian Discharge ED Provider: Buster Rivero General Adult HPI General Chief complaint: Recheck/Abnormal Lab/Rx Stated complaint: High B/P Time Seen by Provider: 09/15/24 09:36 Mode of Arrival: Ambulatory Source of Information: Patient Limitations: No Limitations Description of Symptoms (Recalled from ER Triage Doc. by RN): c/o high bp this morning 160/102. Denies any symptoms at this time History of Present Illness HPI narrative: Patient is 89-year-old male past medical history of hypertension on metoprolol and intermittent amlodipine who presents emergency department for evaluation of elevated blood pressure. His blood pressure is 160/102 this morning, he has no acute complaints. He took his amlodipine 2.5 mg which he takes intermittently when his blood pressure is high, he presents here for continued evaluation. Related Data Home Medications ?Medication ?Instructions ?Recorded ?Confirmed apixaban 5 mg tablet (Eliquis) 5 mg PO BID . 12/03/22 09/07/24 fluticasone propionate 50 1 spray intranasal DAILY PRN 12/03/22 09/07/24 mcg/actuation nasal allergies spray,suspension gabapentin 300 mg capsule 300 mg PO DAILY , 12/03/22 09/07/24 lovastatin 40 mg tablet 40 mg PO DAILY 2 12/03/22 09/07/24 metoprolol tartrate 50 mg tablet See Rx Instructions PO BID 12/03/22 09/07/24 Hypertension terazosin 5 mg capsule 5 mg PO DAILY . 12/23/22 09/07/24 Allergies Allergy/AdvReac Type Severity Reaction Status Date / Time lisinopril Allergy Intermediate Verified 09/07/24 15:30 losartan Allergy Mild Verified 09/07/24 15:30 ciprofloxacin Allergy Unknown Verified 09/07/24 15:30 oxycodone Allergy Unknown Verified 09/07/24 15:30 carvedilol Allergy Verified 09/07/24 15:30 metronidazole Allergy Verified 09/07/24 15:30 midazolam (From Versed) Allergy Verified 09/07/24 15:30 sulfamethoxazole (From Allergy Verified 09/07/24 15:30 Bactrim) trimethoprim (From Bactrim) Allergy Verified 09/07/24 15:30 PFS PFS Disclaimer: The information contained in this section may have been updated after the patient was seen, as this information can be updated by other users. Medical History Cognitive changes Headache HLD (hyperlipidemia) HTN (hypertension) Cardiac pacemaker in situ Dyspnea Surgical History History of back surgery History of cataract extraction History of thyroidectomy History of tonsillectomy History of AAA (abdominal aortic aneurysm) repair History of aortic valve replacement Family History Other Cancer Diabetes Social History Smoking Status: Former smoker tobacco type: cigarettes packs per day: 3 how long ago did patient quit smokin years ago alcohol intake: never substance use type: denies use current occupational status: other Travel in the last 8 weeks: None household members: spouse housing: house marital status: number of children: 2 caffeine: No Have you lived/traveled outside [place] in past 30 days?: No Contact w/someone who lives/traveled outside US past 30 days?: No Exposure to someone with infectious disease in past 14 days?: No Do you have a fever (greater than 100.4 F or 38 C)?: No Have you tested positive for COVID-19: No Exposed to someone with COVID-19 in past 14 days?: No Do you have a sore throat?: No Do you have a cough?: No Do you have any weakness?: No Do you have any diarrhea?: No Are you experiencing any unusual bleeding?: No Do you have any muscle aches/pain?: No Do you have any abdominal pain?: No Are you experiencing loss of taste or smell?: No Other Medical History Have you received the Flu Vaccine for this season: No Have you received the Pneumonia Vaccine: No ROS Obtained: Yes Systems reviewed as appropriate & no additional complaints except as documented Physical Exam General General appearance: alert and in no apparent distress Head Head exam: atraumatic and normocephalic Eye Eye exam: Present PERRL ENT ENT exam: Present mucous membranes moist Neck Neck exam: Present normal inspection Chest Chest inspection: Present normal inspection and symmetric chest wall rise Respiratory Respiratory exam: Present normal lung sounds bilaterally; Absent respiratory distress Cardiovascular Cardiovascular exam: Present regular rate and normal rhythm Abdominal Exam Abdominal exam: Present soft Extremities Exam Extremities exam: Present normal inspection Neurological Exam Neurological exam: Present alert Psychiatric Psychiatric exam: Present normal affect Skin Skin exam: Present warm and dry Medical Decision Making Medical Records Screening: Per USPSTF and CDC recommendations, given the prevalence of disease in our region, it is our hospital?s policy to screen for HIV and viral Hepatitis for all patients aged 18 and over and those with ongoing risk factors. Reza Inquiry Pt receiving controlled substance: No Vital Signs: 09/15/24 08:39 Temperature 97.9 F Temperature Source Oral Pulse Rate [Left Radial] 64 Respiratory Rate 18 Blood Pressure [Right Arm] 155/88 H Blood Pressure Mean [Right Arm] 110 02 Sat by Pulse Oximetry 99 Oxygen Delivery Method Room Air Medical Decision Narrative: In summary patient is a 89-year-old male with past medical history described above who presents emergency department for evaluation of asymptomatic hypertension. Patient took his as needed amlodipine this morning and has had decent effect as his systolic is now in the 140s. Workable labs and imaging was considered however will be deferred given that he has no acute complaints and I nonfocal exam. I recommended patient continue to take his amlodipine instead of as needed take it every morning for the next few days and follow-up with his family doctor and gave him return precautions and stop precautions and he verbalized understanding. Patient is appropriate for discharge at this time. Critical Care Critical Care Time Critical Care Time: No
[2024-09-15 10:03] VITALS: BP 161/92; PULSE 65; RESP 18; TEMP 36.6; O2SAT 99
== END 2024-09-15 10:04 | disposition home or self-care (01) ==
PROVIDERS: Emergency Provider Emergency Medicine; PCP Nurse Practitioner Family
DX: I10 Essential (primary) hypertension (principal)
CPT/HCPCS: 99282

== ENCOUNTER 2024-10-20 08:03 | Outpatient (CLI) | payer MEDICARE, SELFPAY ==
[2024-10-20 08:37] LABS: Basophils % 0.6 % (0.1-2.0); Eosinophils # 0.3 K/mm3 (0.0-0.4); Eosinophils % 4.1 % (0.1-12.0); Hematocrit 43.5 % (42.0-52.0); Hemoglobin 14.3 g/dL (14.1-18.0); Lymphocytes # 2.3 K/mm3 (0.7-4.5); Lymphocytes % 34.6 % (10-50); Mean Corpuscular HGB Conc 32.9 g/dL (31.8-35.4); Mean Corpuscular Volume 91.2 fl (80-94); Mean Platelet Volume 9.3 fl (7.4-10.4); Monocytes # 0.7 K/mm3 (0.1-1.0); Monocytes % 10.9 % (1.7-9.3); Neutrophils # 3.4 K/mm3 (1.8-7.8); Neutrophils % 49.5 % (37.0-80.0); Platelet Count 195 K/mm3 (142-424); Red Blood Count 4.77 M/mm3 (4.60-6.20); Red Cell Distribution Width 13.7 % (11.5-17.5); White Blood Count 6.8 K/mm3 (4.8-10.8)
[2024-10-20 09:25] LABS: Chloride 104 mmol/L (98-107); Potassium 4.1 mmoL/L (3.5-5.1); Sodium 139 mmol/L (136-145)
[2024-10-20 09:27] LABS: Alanine Aminotransferase 22 U/L (12-78); Aspartate Amino Transferase 28 U/L (17-59); Blood Urea Nitrogen 25 mg/dl (9-20); Estimated Glomerular Filt Rate 57 ml/min (>60); GFR (African American) 69 ML/MIN (>60)
[2024-10-20 09:28] LABS: Alkaline Phosphatase 91 U/L (38-126); Anion Gap 14.1 mEq/L (5-15); Bilirubin,Total 0.6 mg/dl (0.2-1.3); Calcium 8.9 mg/dl (8.4-10.2); Carbon Dioxide 25 mmol/L (22.0-30.0); Chol/HDL Ratio 3.5 (1-3.5); Cholesterol 131 mg/dl (140-200); Glucose 101 mg/dl (74-100); HDL Cholesterol 37 mg/dl (40-60); Total Protein,Serum 6.5 g/dl (6.3-8.2); Triglycerides 84 mg/dl (30-150); VLDL Cholesterol 17 mg/dL (0-40)
[2024-10-20 09:39] LABS: Direct LDL Cholesterol 71.42 mg/dL (100-129)
[2024-10-20 10:26] LABS: Albumin Level 4.1 g/dl (3.5-5.0); Albumin/Globulin Ratio 1.7 (1.1-1.8); Globulin 2.4 g/dL (1.3-3.2)
== END 2024-10-20 23:59 | disposition home or self-care (01) ==
LOC: LAB 08:04
PROVIDERS: PCP Nurse Practitioner Family; Visit Provider Nurse Practitioner Family
DX: I10 Essential (primary) hypertension (principal); E78.2 Mixed hyperlipidemia; I48.0 Paroxysmal atrial fibrillation
CPT/HCPCS: 36415; 80053; 80061; 85025

== ENCOUNTER 2025-02-07 00:20 | Emergency (ER) | payer MEDICARE, SELFPAY ==
[2025-02-07 00:28] VITALS: BP 128/88; PULSE 61; RESP 18; TEMP 36.7; O2SAT 99; BMI 29.2
[2025-02-07 00:36] VITALS: BP 128/88; PULSE 61; RESP 18; TEMP 36.7; O2SAT 99
--- OUTSIDE RECORDS SUMMARY | 2025-02-07 00:40 | XMS_ITS | Data Portability ---
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 Plan of Treatment Reminders Order Date Submit Date Provider Last Modified By Organization Details Last Modified Time Details Appointments OV EST 15 025 01:30PM Mp Jerome MD Not available Not available Not available Lab None recorde d. Referral None recorde d. Procedures None recorde d. Surgeries None recorde d. Imaging US, echocar diogram , transth oracic, complet e, w/ color flow 024 024 [email or web address] [facility] (Centralized Scheduling), [address], Located Within [facility], [place], [address], 02/10/2024 14:04:30 Medication Orders None recorde d. Patient TargetsNo targets recorded. Patient InstructionsNo instructions recorded. Reason for Referral None Reported. Results Created Date Observation Date Name Description Value Unit Range Abnormal Flag Note LastModifiedBy Organization Detail LastModifiedTime 04/23/2004/16/2023 pacem dave inter rogat ion (PROC ) No observ ation record ed. BARCODE Not Available 2022 11:28:27 12/11/19 24 11/12/2023 pacem dave inter rogat ion (PROC ) No observ ation record ed. Not Available 2023 15:29:32 12/11/19 24 11/12/2023 pacem dave inter rogat ion (PROC ) No observ ation record ed. Not Available 2023 15:40:50 01/05/20 24 01/02/2024 US, echoc ardio gram, trans thora cic, compl ete, w/ color flow [facility] [address] [place] [address] Phone: Fax: Name: JACINTO JONES Exam Date: 024 : 1934 Age 88 years Gender : M Access ion: [id number] Physic robin: MP JEROME Facili ty: [facility] Facili ty HSV: Outpat ient Exam: ECHO W SPEC COLOR FLOW Reason for Study: PAF, Pros AV SUMMAR Y Normal LV size with normal functi on. The ejecti on fracti on is 60-65% . Left ventri cular fillin g patter n c/w diasto lic dysfun ction. There is a normal functi oning biolog ical AV prosth esis.( Peak grad=2 8mmHg, Mean grad=1 6mmHg, dimens ionles s index is 0.46). There is mild mitral regurg itatio n. There is mild tricus pid regurg itatio n. Normal PA pressu re (30 mmHg). The ascend ing aorta is enlarg ed.Asc ending =4.20c m. Compar ed to echo 2021, Asc Ao 3.5cm, INTERP RETATI ON DETAIL Good qualit y study. Left ventri marie: The left ventri marie is normal in size with normal systol ic functi on. The ejecti on fracti on is 60-65% . There is top normal LV wall thickn ess. LV geomet ry is normal . The left ventri cular wall motion is normal . The left ventri cular fillin g patter n sugges ts diasto lic dysfun ction. False chords are presen t. Left atrium : The left atrium is normal . LA volume : 39.7mL , LA volume index: 22.4mL /mA. Right ventri marie: The right ventri marie is normal in size with normal functi on. Right atrium : The right atrium is normal . Mitral valve: The leafle ts are slight ly calcif ied. There is no mitral stenos is. There is mild mitral regurg itatio n. 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 LVOT royer=2. 00cm, LVOT TVI=25 .9cm, Ao TVI=56 .0cm). The dimens ionles s index is 0.46. AV peak veloci sh=681 cm/sec . Tricus pid valve: The tricus pid valve is normal . There is mild tricus pid regurg itatio n. PASP= 30 mmHg, RAP=7m mHg. Pulmon ic valve: The pulmon ic valve is normal . Perica rdium: The perica rdium is normal . Pulmon michelle artery : The pulmon michelle artery is normal . Intera trial septum : The intera trial septum is normal . Aorta: The aortic root is enlarg ed. The ascend ing aorta is enlarg ed. Aortic dimens ion - Ascend ing=4. 20cm. Vena Cava: The inferi or vena cava is normal . Miscel laneou s: Two pacema ker leads are noted in the right atrium and ventri marie. MEASUR EMENTS Left Ventri marie IVSd: 1.09cm (0.6-1 .1cm) PWd: 1.05cm (0.6-1 .1cm) Mass Ana Paula: 160g LVMI: 90g/mA ? LVIDd: 4.36cm (3.7-5 .6 cm) LVIDdI : 2.46cm /m2 LVIDs: 2.48cm (1.8-4 .2 cm) LVIDsI : 1.40cm /m2 RWT: 0.48 (<0.42 ) E to A: 0.58 (0.6-2 ) Legall y authen ticate d by ERNESTO Cruz 01-04 08:49: 40 E-e prime med: 14.60 E-e prime lat: 18.25 Decel: 201.00 ms (168-2 32ms) Right Ventri marie Mid RV Royer: 2.7cm (2.7-3 .3cm) Max Valve Veloci ties AV peak ron: 265cm/ sec LVOT: 123.00 cm/sec Pulmon michelle RAP: 7mmHg PASP: 30mmHg Atria LA AP: 3.2cm LA vol: 39.7mL BRADLY: 22.4mL /mA? Mp Jerome MD Electr onical ly signed by Dr. Mp Jerome on 2023 at 8:49 AM Dictat ed By: MP JEROME Transc ribed By: Transc ribed On: 8:49 AM Electr onical ly signed by: MP JEROME Thank you for referr JACINTO Hall to [facility] it Hospit al. Legall y authen ticate d by ERNESTO Cruz 01-04 08:49: 40 CC'ed Logic: Orderi ng Provid er: ERNESTO ROBLES Attend ing Provid er: ERNESTO ROBLES Referr ing Provid er: ERNESTO ROBLES Admitt ing Provid er: ERNESTO ROBLES [email or web address] l [facility] - [facility] Therapy [address], Located [facility], [place], [address], 01/29/2024 14:00:54 05/28/20 24 05/12/2024 pacem dave inter rogat ion (PROC ) No observ ation record ed. [email or web address] Not Available 05/28 10:13:46 01/01/20 25 11/10/2024 pacem dave inter rogat ion (PROC ) No observ ation record ed. [email or web address] Not Available 12/31 08:49:30 Result Notes None recorded. Problems Name Problem SNOMED Code Status Onset Date Resolution Date Notes Provider Name and Address Organization Details Recorded Time Hyperlipid emia 14593778 Active 2024 Mp Jerome MD [address], [facility] [facility], [place], [address] , [facility] - [facility] - [place] 5 13:41:25 Sick sinus syndrome 79369925 Active 2021 [facility] - [place] [facility] [place] 3 11:45:38 History of aortic valve replacemen t 7061257847473 Active [facility] - [facility] - [place] 3 15:08:16 Cardiac pacemaker in situ 090088876 Active Flakita villeda, [facility] [place] 3 15:08:16 Atrial flutter 1686384 Active Flakita villeda, RA[facility] Crane [facility] & [place] 3 15:08:16 Essential hypertensi on 93950853 Active Flakita villeda, [facility] & [place] 3 15:08:16 Chest pain 27065331 Active 2023 Mp Jerome MD [address], [facility], [place], [address] , [facility] & [place] 4 14:24:30 Problem Notes None recorded. Procedures Surgical History None recorded. Imaging Results Imaging Date Name Status LastModified by Organization Details LastModified Time 04/16/2023 pacemaker interrogation (PROC) completed BARCODE Information not available 04/23/2023 11:28:27 11/12/2023 pacemaker interrogation (PROC) completed Information not available 12/11/2023 15:29:32 11/12/2023 pacemaker interrogation (PROC) completed Information not available 12/11/2023 15:40:50 01/02/2024 US, echocardiogram, transthoracic, complete, w/ color flow [email or web address] [address], [facility], [place], [address], 01/29/2024 14:00:54 05/12/2024 pacemaker interrogation (PROC) completed [email or web address] Information not available 05/28/2024 10:13:46 11/10/2024 pacemaker interrogation (PROC) completed [email or web address] Information not available 12/31/2024 08:49:30 Procedure Notes None recorded. Medical Equipment None Reported. Allergies No known drug allergies Medications Name Sig Start Date Stop Date Status Note LastModified by Organization Details LastModified Time terazosin 5 mg capsule 1 {capsule _at_bedt crissy} by oral route. active Not Available Not Available No t Available doxycycline hyclate 100 mg capsule TAKE 1 CAPSULE BY MOUTH EVERY 12 HOURS( 9AM AND 9PM ) FOR 10 DAYS 04/16 completed Not Available Not Available Not Available cetirizine 10 mg tablet TAKE 1 TABLET BY MOUTH ONCE DAILY 12/04 completed Not Available Not Available Not Available azithromycin 250 mg tablet TAKE 2 TABLETS BY MOUTH ON DAY 1, AND THEN TAKE 1 TABLET BY MOUTH ONCE A DAY ON DAY 2 THROUGH DAY 5 11/12 completed Not Available Not Available Not Available prednisone 20 mg tablet TAKE 1 TABLET BY MOUTH ONCE DAILY FOR 7 DAYS 11/12 completed Not Available Not Available Not Available lovastatin 40 mg tablet Take 1 tablet daily active Not Available Not Available No t Available amlodipine 2.5 mg tablet Take 1 {tablet} by oral route. 04/16 completed Not Available Not Available Not Available tramadol 50 mg tablet TAKE 1 TABLET BY MOUTH EVERY 12 HOURS NEEDED active Not Available Not Available No t Available temazepam 15 mg capsule TAKE 1 CAPSULE BY MOUTH AT BEDTIME active Not Available Not Available No t Available terazosin 2 mg capsule 11/04 completed Not Available Not Available Not Available benzonatate 100 mg capsule TAKE 1 CAPSULE BY MOUTH THREE TIMES DAILY NEEDED FOR COUGH FOR 5 DAYS 11/12 completed Not Available Not Available Not Available metoprolol tartrate 50 mg tablet TAKE 1 & 1/2 (ONE & ONE-HALF ) TABLETS BY MOUTH TWICE DAILY active Not Available Not Available No t Available gabapentin 300 mg capsule TAKE 1 CAPSULE BY MOUTH ONCE DAILY active Not Available Not Available No t Available sertraline 25 mg tablet TAKE 1 TABLET BY MOUTH ONCE DAILY 05/12 completed Not Available Not Available Not Available fluticasone propionate 50 mcg/actuatio n nasal spray,suspen adithya 1 {spray_i n_each_n ostril} by nasal route. active Not Available Not Available No t Available Eliquis 5 mg tablet Take 1 tablet twice a day by oral route. active Not Available Not Available No t Available Vitals Date Recorded Body height Body mass index (BMI) Body weight Systolic blood pressure Diastolic blood pressure Provider Name and Address Organization Details Last Updated DateTime 04/16/2023 152.4 cm 30.1 kg/m2 45487.94 g 102 mm[Hg] 74 mm[Hg] Jeannie Caro [place] - [facility] & [place] 3 15:19:18 Date Recorded Body height Body mass index (BMI) Body weight Oxygen saturation Oxygen saturation in Arterial blood by Pulse oximetry Heart rate Systolic blood pressure Diastolic blood pressure Provider Name and Address Organization Details Last Updated DateTime 4 152.4 cm 30.3 kg/m2 85168.5 4 g 100 % 100 % 75 /min 135 mm[Hg] 79 mm[Hg] Jeannie DANGELO [facility] & [place] 4 13:34:13 Date Recorded Body height Body mass index (BMI) Body weight Oxygen saturation Oxygen saturation in Arterial blood by Pulse oximetry Heart rate Systolic blood pressure Diastolic blood pressure Provider Name and Address Organization Details Last Updated DateTime 4 152.4 cm 28.9 kg/m2 88948.6 7 g 97 % 97 % 72 /min 140 mm[Hg] 100 mm[Hg] Jacki DANGELO [facility] & [place] 4 10:17:05 Date Recorded Body height Body mass index (BMI) Body weight Oxygen saturation Oxygen saturation in Arterial blood by Pulse oximetry Heart rate Systolic blood pressure Diastolic blood pressure Provider Name and Address Organization Details Last Updated DateTime 4 152.4 cm 29.5 kg/m2 65333.4 5 g 99 % 99 % 70 /min 128 mm[Hg] 88 mm[Hg] Jacki DANGELO [facility] & [place] 4 13:52:55 Date Recorded Body height Body mass index (BMI) Body weight Oxygen saturation Oxygen saturation in Arterial blood by Pulse oximetry Heart rate Systolic blood pressure Diastolic blood pressure Provider Name and Address Organization Details Last Updated DateTime 5 152.4 cm 28.9 kg/m2 85380.6 7 g 98 % 98 % 60 /min 134 mm[Hg] 84 mm[Hg] Jacki DANGELO [facility] & [place] 5 13:20:37 Social History Question Answer Notes LastModified by Organizat ion Details LastModified Time Tobacco Smoking Status Former Smoker Jeannie Caro christiana [facility] DANGELO [facility] & [place] 04/16/2023 15:19:02 What Is Your Level Of Caffeine Consumption? Moderate [email or web address] Information not available 04/28/2024 When Did You Quit Smoking? 16+yearssincel maggycililiana [email or web address] Information not available 04/28/2024 Sex: Unknown Functional Status Question Answer Note LastModified by Organizat ion Details LastModified Time Do you use any illicit or recreational drugs? No Information not available 04/16/2023 What is your level of alcohol consumption? None Information not available 04/16/2023 Mental Status None recorded. Family History Nothing Reported. Medical History No medical history recorded. Past Encounters Encounter ID Performer Location Encounter Start Date Encounter Closed Date Diagnosis/Indication Diagnosis SNOMED-CT Code Diagnosis ICD10 Code Diagnosis Note [id number] Mp Jerome MD [facility] [address] [place] [address] [address] [place] [address] 11/04/2022 14:41:42 11/04/2022 15:24:52 History of aortic valve replacement 7846996684 100 Z95.4 Normal functionin g valve from echo 10/2019. Asymptomat ic. Sick sinus syndrome 3608 3008 I49.5 sp Abott pacer- will schedule evaluation Essential hypertension 31588023 I10 Continue current medication . Keep log Low-salt diet < 2 gm Na/day, Regular exercise Weight loss Cardiac pa cemaker in situ 324291715 Z95.0 Atrial flutter 2031145 I 48.92 denies any palpitatio ns. On eliquis [id number] Mp Jerome MD [facility] [address] [place] [address] [address] [place] [address] 12/04/2022 14:56:47 12/04/2022 15:39:02 History of aortic valve replacement 9876763133 100 Z95.4 Normal functionin g valve from echo 10/2019. Asymptomat ic. Sick sinus syndrome 3608 3008 I49.5 sp Abott pacer- will schedule six-month evaluation . Essential hypertension 76321543 I10 Continue current medication . Keep log Low-salt diet < 2 gm Na/day, Regular exercise Weight loss Atrial flutter 5078870 I 48.92 No palpitatio ns. Less than 1% mode switch. No RVRPatient asymptomat ic.On eliquis Cardiac pa cemaker in situ 477986543 Z95.0 Cox pacemaker [id number] Mp Jerome MD [facility] [address] [place] [address] [address] [place] [address] 04/16/2023 14:56:53 04/16/2023 15:54:48 Sick sinus syndrome 43817126 I49.5 sp Abott pacer- device interrogat ed today, normal functionwi ll schedule six-month evaluation . Atrial flutter 2424771 I 48.92 no episodes of AFib flutter noted on device check today.Cont inue anticoagul ation with eliquis History of aortic valve replacement 7068252772 100 Z95.4 Normal functionin g valve from echo 10/2019. Asymptomat ic.echo at next visit Essential hypertension 78584599 I10 Decrease Lopressor 50 BID from 75 b.i.d. as BP running low and symptomati cKeep logLow-osbaldo t diet < 2 gm Na/day,Reg ular exerciseWe ight loss Cardiac pa cemaker in situ 152557862 Z95.0 Cox pacemaker [id number] Mp Jerome MD [facility] [address] [place] [address] 11/12/2023 13:27:22 11/12/2023 14:18:06 Sick sinus syndrome 78440370 I49.5 sp Abott pacer- device interrogat ed today, normal function, will schedule six-month evaluation . Atrial flutter 2089940 I 48.92 AFib noted on device check today. Asymptomat icContinue anticoagul ation with eliquis History of aortic valve replacement 8989069778 100 Z95.4 Normal functionin g valve from echo 10/2019. Asymptomat ic. Essential hypertension 61320787 I10 Continue current medication . Keep log Low-salt diet < 2 gm Na/day, Regular exercise Weight loss Cardiac pa cemaker in situ 224818041 Z95.0 Cox pacemaker [id number] Mp Jerome MD [facility] [address] [place] [address] 04/28/2024 09:47:52 04/28/2024 10:37:07 Sick sinus syndrome 35212989 I49.5 sp Abott pacer- Atrial flutter 4827554 I 48.92 AFib noted on device check today. Asymptomat icContinue anticoagul ation with eliquis History of aortic valve replacement 6724777697 100 Z95.4 Normal functionin g valve from echo 10/2019. Asymptomat ic. Essential hypertension 34653377 I10 Continue current medication . Keep log Low-salt diet < 2 gm Na/day, Regular exercise Weight loss Cardiac pa cemaker in situ 752460537 Z95.0 Cox pacemaker Chest pain 49086648 R07. 9 atypical symptom. Chest pain developed following the loss of his son, no exertional component [id number] Mp Jerome MD [address] [place] [address] 05/12/2024 13:37:31 05/12/2024 14:22:56 Chest pain 11529823 R07.9 Symptoms have resolved. Will clinically monitor this point. Sick sinus syndrome 3608 3008 I49.5 sp Abott pacer Device interrogat ed today. Normal function. Atrial flutter 5825745 I 48.92 No AFib noted short runs of atrial tach patient asymptomat icContinue anticoagul ation with eliquis History of aortic valve replacement 6646807317 100 Z95.4 Normal functionin g valve from echo 10/2019. Asymptomat ic. Essential hypertension 36739241 I10 Continue current medication . Keep log Low-salt diet < 2 gm Na/day, Regular exercise Weight loss Cardiac pa cemaker in situ 200653918 Z95.0 Cox pacemaker [id number] Mp Jerome MD [address] [place] [address] 11/10/2024 13:02:56 11/10/2024 13:49:55 Sick sinus syndrome 63707572 I49.5 sp Abott pacer Device interrogat ed today. Normal function. Atrial flutter 8032878 I 48.92 denies any palpitatio ns.Continu e anticoagul ation with eliquis History of aortic valve replacement 7897919724 100 Z95.4 Normal functionin g valve from echo 10/2019. Asymptomat ic. Essential hypertension 95664447 I10 Continue current medication . Keep log Low-salt diet < 2 gm Na/day, Regular exercise Weight loss Cardiac pa cemaker in situ 151431421 Z95.0 Cox pacemaker Hyperlipidemia 72798249 E78.5 Continue statin Low fat/carboh ydrate diet Increase exercise Lose weight Health Concerns Section Related Observation LastModified by Organization Detai ls LastModified Time None Recorded Concern Status LastModified by Organization Details LastModified Time None Recorded Advance Directives Directive None Recorded Payers Insurance Date Sequence Insurance Name Policy Number Policy James Covered Member ID James Member ID Guarantor Name 11/10/2024 1 [facility] (MEDICARE REPLACEMENT/A DVANTAGE - HMO) [id number] Jacinto Jones [id number] Ayesha Jones 11/10/2024 1 [place] Jacinto Jones [id number] Ayesha Jones 11/10/2024 2 [facility] [facility] (MEDICARE SUPPLEMENT) Jacinto Jones [id number] Ayesha Jones Notes Date Note Type Note Provider Name and Address Organization Details Recorded Time 3 text/html 87 M with HTN and bioprosthetic aortic valve and pacer here for routine fu visit.Device interrogated today as noted belowBP running low with dizziness . will cut down blood pressure medications.No chest pain, shortness of breath, PND, orthopnea, peripheral edema, palpitations, presyncope, syncope+ paroxysmal a flutter+08/2012-history of ascending aortic aneurysm status post bioprosthetic valve replacement, 21 mm Clarke in 2011.+SSS 08/2012- had a Saint Fan pacemaker, generator change 12/10Device interrogated today 92% A paced 21% RV paced .No programming change. Battery life 6 years. 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 The ejection fraction is 55-60%. Normal diastolic function. There is an AV prosthesis with normal function. There is mild tricuspid regurgitation. Mildly increased PASP (35 mmHg).Labs 04/30/2022: He BUN/creatinine 18/1.3, GFR 49, LFTs normal, hemoglobin/hematocrit 14/42, platelets 200. Mp Jerome MD [address], [place], [address], [facility] - [place] & [place] 04/16/2023 16:36:37 4 text/html 88 M with HTN and bioprosthetic aortic valve and pacer here for routine fu visit.C/o back painDevice interrogated today as noted belowNo specific cardiovascular complaints today. No chest pain, shortness of breath, PND, orthopnea, peripheral edema, palpitations, presyncope, syncope + paroxysmal a flutter / Afib -noted on device check today+08/2012-history of ascending aortic aneurysm status post bioprosthetic valve replacement, 21 mm Clarke in 2011.+SSS 08/2012- had a Saint Fan pacemaker, generator change 12/10Device interrogated today 91% A paced 16% RV paced .No programming change. Battery life 8 years.Less than 1% mode switch longest was for 48 hours. 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 The ejection fraction is 55-60%. Normal diastolic function. There is an AV prosthesis with normal function. There is mild tricuspid regurgitation. Mildly increased PASP (35 mmHg).Labs 04/30/2022: He BUN/creatinine 18/1.3, GFR 49, LFTs normal, hemoglobin/hematocrit 14/42, platelets 200. Mp Jerome MD [address], [facility], [place], [address], [facility] - [facility] - [place] 11/14/2023 15:57:51 4 text/html 88 M with HTN and bioprosthetic aortic valve and pacer here for routine fu visit.He lost his son rather suddenly following loss of his son post valve replacement.He c/o chest pressure x since the loss of his son, no exertional component. Also complains of headache.No shortness of breath, PND, orthopnea, peripheral edema, palpitations, presyncope, syncope + paroxysmal a flutter / Afib -noted on device check today+08/2012-history of ascending aortic aneurysm status post bioprosthetic valve replacement, 21 mm Clarke in 2011.+SSS 08/2012- had a Saint Fan pacemaker, generator change 12/10Device interrogated today 91% A paced 16% RV paced .No programming change. Battery life 8 years.Less than 1% mode switch longest was for 48 hours. Patient is asymptomatic.please see scanned report for further specificsSoc Hx: , from [place] who but [place] lived in the [place] 50 yearsEKG 10/26/2019 normal sinus rhythm rate of 72 left axis deviation inferior Q-waves Echo 11/05/19Normal LV size with normal function. The ejection fraction is 55-60%. Normal diastolic function. There is an AV prosthesis with normal function. There is mild tricuspid regurgitation. Mildly increased PASP (35 mmHg).Labs 04/30/2022: He BUN/creatinine 18/1.3, GFR 49, LFTs normal, hemoglobin/hematocrit 14/42, platelets 200. Mp Jerome MD [address], [place], [address], [facility] - [place] 04/29/2024 15:31:46 4 text/html 88 M with HTN and bioprosthetic aortic valve and pacer here for routine fu visit.Denies any further chest pain. Device interrogated as noted below.No shortness of breath, PND, orthopnea, peripheral edema, palpitations, presyncope, syncope + paroxysmal a flutter / Afib - no AFib noted on device check today+08/2012-history of ascending aortic aneurysm status post bioprosthetic valve replacement, 21 mm Clarke in 2011.+SSS 08/2012- had a Saint Fan pacemaker, generator change 12/10Device interrogated today 91% A paced 20% RV paced programming change: VIP increase 200 millisecondsraremode switch longest was for 10 seconds. Patient is asymptomatic.please see scanned report for further specificsSoc Hx: , from [place] who but [place] lived [place] the [place] 50 yearsEKG 10/26/2019 normal sinus rhythm rate of 72 left axis deviation inferior Q-waves Echo 11/05/19Normal LV size with normal function. The ejection fraction is 55-60%. Normal diastolic function. There is an AV prosthesis with normal function. There is mild tricuspid regurgitation. Mildly increased PASP (35 mmHg).Labs 04/30/2022: BUN/creatinine 18/1.3, GFR 49, LFTs normal, hemoglobin/hematocrit 14/42, platelets 200. Mp Jerome MD [address], [place], [address], [facility] - [facility] & [place] 05/12/2024 14:15:14 5 text/html 89 M with HTN and bioprosthetic aortic valve and pacer here for routine fu visit.Device interrogated as noted below.No specific cardiovascular complaints today. No chest pain, shortness of breath, PND, orthopnea, peripheral edema, palpitations, presyncope, syncope + paroxysmal a flutter / Afib -+08/2012-history of ascending aortic aneurysm status post bioprosthetic valve replacement, 21 mm Clarke in 2011.+SSS 08/2012- had a Saint Fan pacemaker, generator change 12/10Device interrogated today 64% A paced15% RV p7 %mode switch longest was for 6 days. 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 The ejection fraction is 55-60%. Normal diastolic function. There is an AV prosthesis with normal function. There is mild tricuspid regurgitation. Mildly increased PASP (35 mmHg).Labs 04/30/2022: BUN/creatinine 18/1.3, GFR 49, LFTs normal, hemoglobin/hematocrit 14/42, platelets 200. Mp Jerome MD [address], [place], [address], [facility] - NT [facility] & [place] 11/10/2024 15:09:33
[2025-02-07] MEDS: BACITRACIN ZINC OINT 30GM TUBE TP (00:42)
--- NOTE | 2025-02-07 02:27 | HMH.EDGENADL ---
Discharge Plan Disposition Patient Disposition: Home, Self-Care Condition: Good Prescriptions Prescriptions: No Action Eliquis 5 mg tablet 5 mg PO BID amlodipine 5 mg tablet 5 mg PO DAILY hydrocortisone 0.5 % cream 1 applic topical BID PRN (Reason: itching) Qty: 28.4 0RF Rx Instructions: apply to rash under arm as directed for itching nystatin 100,000 unit/gram cream 1 applic topical BID Qty: 30 0RF Rx Instructions: apply to underarm as directed twice daily fluticasone propionate 50 mcg/actuation spray,suspension 1 spray NS DAILY PRN (Reason: allergies) gabapentin 300 mg capsule 300 mg PO DAILY lovastatin 40 mg tablet 40 mg PO DAILY metoprolol tartrate 50 mg tablet See Rx Instructions PO BID Rx Instructions: 75mg orally twice a day; terazosin 5 mg capsule 5 mg PO DAILY Activity Restrictions/Add. Instructions Additional Instructions/Restrictions: You were evaluated in the ER and are appropriate for discharge at this time. Continue taking your home medications as previously prescribed. Keep the wound clean and dry. Wash it with warm soapy water twice a day then apply the provided bacitracin ointment twice a day for 1 week. Make an appointment with your primary care doctor for reevaluation. Return to the ER with any new, worsening, or otherwise concerning symptoms. Clinical Impressions Clinical Impression: Bug bite, Leg wound, right Instructions Patient Instructions: DI for Laceration Repair Print Language Print Language: Yoruba Discharge ED Provider: Josué Merino General Adult HPI General Chief complaint: Wound/Laceration Stated complaint: bug bite bleeding Time Seen by Provider: 02/07/25 00:32 Mode of Arrival: EMS Source of Information: Patient and EMS Description of Symptoms (Recalled from ER Triage Doc. by RN): pt to ED with c/o a bleeding bug bite to the right ankle. pt reports he scratched it and caused it to bleed significantly. Pt takes eliquis daily. Bleeding is controlled at this time History of Present Illness HPI narrative: 89 year old male on eliquis with a history of HTN, replaced aortic valve, aortic aneurysm repair, hyperlipidemia, hypothyroid presents to the ER with complaints of small bleeding wound on the right ankle. Patient reports he had an itchy bump that he scratched and suddenly felt something wet, he realized he was bleeding. Patient does have varicose veins in this area. He states it bled significantly but he did apply pressure and by the time he arrived in the ER the bleeding had stopped. He has not had any falls, other injuries, wound happened tonight, it has never been contaminated, it was not caused by foreign body, he has not had fevers, chills, redness, discharge, or any other abnormalities. No other complaints or concerns. Related Data Home Medications ?Medication ?Instructions ?Recorded ?Confirmed apixaban 5 mg tablet (Eliquis) 5 mg PO BID . 12/03/22 12/24/24 fluticasone propionate 50 1 spray intranasal DAILY PRN 12/03/22 12/24/24 mcg/actuation nasal allergies spray,suspension gabapentin 300 mg capsule 300 mg PO DAILY , 12/03/22 12/24/24 lovastatin 40 mg tablet 40 mg PO DAILY 2 12/03/22 12/24/24 metoprolol tartrate 50 mg tablet See Rx Instructions PO BID 12/03/22 12/24/24 Hypertension terazosin 5 mg capsule 5 mg PO DAILY . 12/23/22 12/24/24 amlodipine 5 mg tablet 5 mg PO DAILY 12/24/24 12/24/24 Previous Rx's ?Medication ?Instructions ?Recorded hydrocortisone 0.5 % topical cream 1 applic topical BID PRN itching 12/24/24 #28.4 grams nystatin 100,000 unit/gram topical 1 applic topical BID #30 grams 12/24/24 cream Allergies Allergy/AdvReac Type Severity Reaction Status Date / Time No Known Allergies Allergy Verified 12/24/24 15:29 [facility] Disclaimer: The information contained in this section may have been updated after the patient was seen, as this information can be updated by other users. Medical History (Updated 02/07/25 @ 00:35 by Josué Merino MD) Yeast dermatitis Cognitive changes Headache HLD (hyperlipidemia) HTN (hypertension) Cardiac pacemaker in situ Dyspnea Surgical History History of back surgery History of cataract extraction History of thyroidectomy History of tonsillectomy History of AAA (abdominal aortic aneurysm) repair History of aortic valve replacement Family History Other Cancer Diabetes Social History Smoking Status: Former smoker tobacco type: cigarettes packs per day: 3 how long ago did patient quit smokin years ago alcohol intake: never substance use type: denies use current occupational status: other Travel in the last 8 weeks?: None household members: spouse housing: house marital status: number of children: 2 caffeine: No Have you lived/traveled outside US in past 30 days?: No Contact w/someone who lives/traveled outside US past 30 days?: No Exposure to someone with infectious disease in past 14 days?: No Do you have a fever (greater than 100.4 F or 38 C)?: No Have you tested positive for COVID-19?: No Exposed to someone with COVID-19 in past 14 days?: No Do you have a sore throat?: No Do you have a cough?: No Do you have any weakness?: No Do you have any diarrhea?: No Are you experiencing any unusual bleeding?: No Do you have any muscle aches/pain?: No Do you have any abdominal pain?: No Are you experiencing loss of taste or smell?: No Other Medical History Have you received the Flu Vaccine for this season: No Have you received the Pneumonia Vaccine: No ROS Obtained: Yes Systems reviewed as appropriate & no additional complaints except as documented per HPI Physical Exam General General appearance: alert and in no apparent distress Head Head exam: atraumatic and normocephalic Eye Eye exam: Present PERRL and EOMI ENT ENT exam: Present mucous membranes moist Neck Neck exam: Present normal inspection and full ROM Chest Chest inspection: Present symmetric chest wall rise Respiratory Respiratory exam: Absent respiratory distress or stridor Cardiovascular Cardiovascular exam: Present regular rate and normal rhythm Extremities Exam Extremities exam: Present full ROM; Absent edema Expanded Lower Extremity Exam Right: Ankle image: 1. 8mm small pruritic fleshy raised lesion that appears to be a bug bite with punctate central open wound that is hemostatic. Wound is overlying a varicose vein on the medial malleolus. No surrounding erythema, induration, no fluctuance, no discharge. No other injuries, neurovascularly intact Neurological Exam Neurological exam: Present alert, oriented X3 and other (ambulatory with cane); Absent motor sensory deficit Psychiatric Psychiatric exam: Present normal affect and normal mood Skin Skin exam: Present warm and dry Medical Decision Making Medical Records Medical records reviewed: Yes I reviewed the patient's medical records. Screening: Per USPSTF and CDC recommendations, given the prevalence of disease in our region, it is our hospital?s policy to screen for HIV and viral Hepatitis for all patients aged 18 and over and those with ongoing risk factors. Reza Inquiry Pt receiving controlled substance: No Vital Signs: 02/07/25 00:28 02/07/25 00:36 Temperature 98.1 F 98.1 F Temperature Source Oral Pulse Rate 61 Pulse Rate [Left Radial] 61 Respiratory Rate 18 18 Blood Pressure 128/88 Blood Pressure [Right Arm] 128/88 Blood Pressure Mean [Right Arm] 101 Blood Pressure Source [Right Arm] Automatic Cuff Blood Pressure Position [Right Arm] Sitting 02 Sat by Pulse Oximetry 99 Oxygen Delivery Method Room Air Room Air Orders (Tests/Meds): ED MEDICATIONS Discontinued Medications Generic Name Dose Route Start Last Admin Trade Name Freq PRN Reason Stop Dose Admin Bacitracin 1 gm 02/07/25 00:37 02/07/25 00:42 Bacitracin Zinc Oint 30gm Tube TP 02/07/25 00:38 1 gm ONCE ONE Administration Medical Decision Narrative: In summary, this 89-year-old male with comorbidities described in the HPI which may not be at goal therapy presents to the emergency department today with small wound on medial right ankle that reportedly had copious bleeding prior to arrival. On initial evaluation patient is hemodynamically stable, afebrile, GCS 15, no active bleeding from the very small wound overlying the medial malleolus which appears to likely be a bug bite overlying a small varicose vein. Neurovascularly intact, no other findings of injury. Differential diagnosis includes but is not limited to bug bite, small bleeding wound, patient likely had increased bleeding secondary to use of Eliquis and being over a varicose vein, I considered the possibility of infected wound however the wound occurred tonight, was not contaminated, and has no findings of infection. Wound has been hemostatic since prior to arrival in the ER. I do not believe patient requires any labs or imaging at this time. He does not demonstrate any findings of severe blood loss. Bacitracin was applied to the wound to help keep it clean and with provided to the patient for home use. Patient was given instructions on wound management and care, bacitracin use, dressings, follow-up instructions, and strict return precautions for the ER. He indicated understanding and the patient was discharged in stable condition. Critical Care Critical Care Time Critical Care Time: No
== END 2025-02-07 00:52 | disposition home or self-care (01) ==
LOC: ER 00:38
PROVIDERS: Emergency Provider Emergency Medicine
DX: S81.801A Unspecified open wound, right lower leg, initial encounter (principal); I83.891 Varicose veins of right lower extremity with other complications; W57.XXXA Bitten or stung by nonvenomous insect and other nonvenomous arthropods, initial encounter; Z79.01 Long term (current) use of anticoagulants
CPT/HCPCS: 99283

== ENCOUNTER 2025-05-05 11:21 | Outpatient (CLI) | payer MEDICARE, SELFPAY ==
--- OUTSIDE RECORDS SUMMARY | 2025-03-08 07:45 | XMS_ITS | Encounter Summary ---
Author Organization Healthcare Address [address] [place] [address] Care Team Providers Care Forest Firefighter Name Role Phone Rafa Colón MD Primary Care Provider [phone] Encounter Details Date Type Department Care Team (Latest Contact Info) Description 03/08/2025 7:45 AM EDT - 03/08/2025 11:59 PM EDT Hospital Encounter Cardiac Imaging [address] [place] [address] Pacemaker Discharge Disposition: Home or Self Care Social History Tobacco Use Types Packs/Day Years Used Date Smoking Tobacco: Former Cigarettes Q uit: 2009 Smokeless Tobacco: Never Alcohol Use Standard Drinks/Week Comments No 0 (1 standard drink = 0.6 oz pur e alcohol) PHQ-2 Answer Date Recorded Patient Health Questionnaire-2 Score 0 05/19/2024 Sex and Gender Information Value Date Recorded Sex Assigned at Not on file Legal Sex Male 7:52 PM EDT Gender Identity Not on file Sexual Orientation Not on file documented as of this encounter Medications at Time of Discharge amLODIPine (Norvasc) 2.5 MG tablet Take 1 tablet by mouth daily. apixaban (Eliquis) 5 MG tabletIndications: Atrial flutter, unspecified type (CMS/HCC) Take 1 tablet (5 mg) by mouth 2 (two) times a day. 180 tablet 3 07/07/2024 dexamethasone (Decadron) 4 MG tablet Take 1 tablet by mouth 2 times a day. for 3 days 12/14/2024 gabapentin (Neurontin) 300 MG capsule Take 1 capsule by mouth daily. hydroCHLOROthiazid e (HYDRODiuril) 25 MG tablet Take 1 tablet by mouth daily. lovastatin (Mevacor) 40 MG tablet Take 1 tablet by mouth nightly. methocarbamol (Robaxin) 750 MG tablet Take 1 tablet by mouth 3 times a day. 12/14/2024 metoprolol tartrate (Lopressor) 50 MG tablet Take 1 tablet by mouth 2 times a day. 1.5 tablets twice a day. 75mg BID = 150mg total daily. nortriptyline (Pamelor) 10 MG capsule 1 capsule. nystatin (Mycostatin) cream Apply 1 Application topically. APPLY CREAM TOPICALLY TO AFFECTED AREA TWICE DAILY APPLY TO UNDER ARM DIRECTED 12/24/2024 omeprazole (PriLOSEC) [address] capsule Take 1 capsule by mouth daily. [id number]-[id number]-NaSul f-Na Asc-C (MoviPrep) 100 g reconstituted solution sertraline (Zoloft) 25 MG tablet Take 1 tablet by mouth daily. 04/15/2024 tamsulosin (Flomax) 0.4 MG 24 hr capsule Take 1 capsule by mouth nightly. temazepam (Restoril) 15 MG capsule Take 1 capsule by mouth at night as needed for sleep. terazosin (Hytrin) 2 MG capsule Take 5 mg by mouth nightly. traMADol (Ultram) 50 MG tablet Take 1 tablet by mouth daily as needed for severe pain. documented as of this encounter Plan of Treatment Upcoming Encounters Date Type Department Care Team (Late st Contact Info) Description 05/18/2025 1:20 PM EDT Office Visit [facility] [place] [address] [facility] [place] [address] Suhail Cowan MD [address] [place] [address] documented as of this encounter Procedures Procedure Name Priority Date/Time Associated Diagnosis Comments CARDIAC DEVICE CHECK - REMOTE - PACEMAKER Routine 03/08/2025 12:14 PM EDT Pacemaker documented in this encounter Results * CARDIAC DEVICE CHECK - REMOTE - PACEMAKER (03/08/2025 12:14 PM EDT) Anatomical Region Laterality Modality Other Narrative 03/08/2025 1:01 PM EDT Images from the original result were not included. [facility] - [facility] Remote CIED Report Name: Jacinto Paulino Date: 03/08/2025 : 1935 Age: 89 y.o. Reporting period: Reporting period is the last 91 days, with at least 30 days of remote monitoring. Interim reports, if any, reviewed and addressed previously; see remote alert entries for more details. Most recent report, dated 03/08/2025, analysis and summary as follows: Device: Cox dual chamber pacemaker Permanent Programming Mode : DDD LRL: 60 bpm MTR: 120 bpm Available measurements within normal limits. (See vendor report in Media for further details) Pacing Percentage: Atrial: 37 % Ventriclar: <1 % Battery: Service time remainin.8-5.6 years Presenting rhythm: sinus with 1:1 intrinsic conduction to the ventricle. Evaluation: Demonstrates appropriate sensing: Yes Demonstrates pacing capture: Yes Arrhythmias: PAF events recorded, Hx of same, on Eliquis. Summary: CIED functioning as expected, with given programming and data. See copy of vendor report in Media us Nancy Moore [employer]it[employer] LLANES CV IMPLANTABLE CARDIAC DEV ICE PROCEDURES Final Result documented in this encounter Visit Diagnoses Diagnosis Pacemaker Cardiac pacemaker in situ documented in this encounter Additional Health Concerns Assessment Noted Time A fall risk assessment has been complete d for the patient 05/19/2024 10:18 AM EDT A Body Mass Index follow-up plan has been documented for the patient 01/17/2025 9:07 AM EDT documented as of this encounter Care Teams Forest Firefighter Relationship Specialty Start Date End Date Rafa Colón MD [address] [place] [address] PCP - General 02/02/21 documented as of this encounter
--- OUTSIDE RECORDS SUMMARY | 2025-05-05 11:26 | XMS_ITS | Encounter Summary ---
Author Organization [facility] Address [address] [place] [address] Care Team Providers Care Audio Visual Specialist Name Role Phone Rafa Colón MD Primary Care Provider Encounter Details Date Type Department Care Team (Late st Contact Info) Description 10/15/2018 External CPT II CROP RESEARCH SCIENTIST - [facility] Social History Tobacco Use Types Packs/Day Years Used Date Smoking Tobacco: Never Assessed Sex and Gender Information Value Date Recorded Sex Assigned at Not on file Legal Sex Male 2:39 PM EDT Gender Identity Not on file Sexual Orientation Not on file documented as of this encounter Plan of Treatment Not on file documented as of this encounter Visit Diagnoses Not on filedocumented in this encounter Care Teams Audio Visual Specialist Relationship Specialty Start Date End Date Rafa Colón MD [address] [place] [address] PCP - General Internal Medicine 12/11/18 documented as of this encounter
--- OUTSIDE RECORDS SUMMARY | 2025-05-05 11:26 | XMS_ITS | Clinical Summary ---
Author Organization [facility] [employer] [facility] Address [address] [place] [address] Care Team Providers Care Billboard Mechanic Name Role Phone Rafa Colón MD Primary Care Provider Allergies Active Allergy Reactions Criticality Noted Date Comments Ciprofibrate Unknown (See Comments) 12/15/2018 Carvedilol Unknown (See Comments) 12/15/2018 ubknown Lisinopril Cough 12/15/2018 Losartan Other (See Comments) 12/15/2018 Hypotension Metronidazole Unknown (See Comments) 12/15/2018 unknown Oxycodone Confusion 12/15/2018 Midazolam Other (See Comments) 12/15/2018 headaches Medications amLODIPine (NORVASC) 2.5 MG tablet Take 2.5 mg by mouth Daily. Active metoprolol tartrate (LOPRESSOR) 50 MG tablet Take 50 mg by mouth 2 (Two) Times a Day. Active terazosin (HYTRIN) 5 MG capsule Take 5 mg by mouth Every Night. Active temazepam (RESTORIL) 15 MG capsule Take 15 mg by mouth At Night As Needed for Sleep. Active CINNAMON PO Take 1,000 mg by mouth 2 (Two) Times a Day. Active ibuprofen (ADVIL,MOTRIN) 200 MG tablet Take 200 mg by mouth Every 8 (Eight) Hours As Needed for Mild Pain . Active Family History Medical History Relation Name Comments Leukemia Brother No Known Problems Father Aortic aneurysm Mother Relation Name Status Comments Brother Father Mother Social History Tobacco Use Types Packs/Day Years Used Date Smoking Tobacco: Never Assessed Abuse Screen Answer Date Recorded Unsafe at Home or Work/School Not on file Feels Threatened by Someone? Not on file 08/2023 Does Anyone Keep You from Co ntacting Others or Doint Things Outside the Home? Not on file 07/03/2023 Physical Sign of Abuse Present Not on file 1 Housing Stability Answer Date Recorded Current Living Arrangements Not on file 06/22 Potentially Unsafe Housing Conditions Not on arlene e 07/03/2023 Family and Community Support Answer Adair e Recorded Help with Day-to-Day Activities Not on file 07/03/2023 Lonely or Isolated Not on file 07/03/2023 Employment Answer Date Recorded Do you want help finding or keeping work or a nichelle b? Not on file 07/03/2023 Disabilities Answer Date Recorded Concentrating, Remembering, or Making Decisions Difficulty Not on file 07/03/2023 Doing Errands Independently Difficulty Not on fi le 07/03/2023 Education Answer Date Recorded Help with school or training? Not on file Preferred Language Not on file 07/03/2023 Sex and Gender Information Value Date Recorded Sex Assigned at Not on file Legal Sex Male 2:39 PM EDT Gender Identity Not on file Sexual Orientation Not on file Last Filed Vital Signs Vital Sign Reading Time Taken Comments Blood Pressure 126/64 12/15/2018 1:10 PM EDT Pulse 70 12/15/2018 1:10 PM EDT Temperature - - Respiratory Rate - - Oxygen Saturation - - Inhaled Oxygen Concentration - - Weight 73.6 kg (162 lb 4.8 oz) 12/15/2018 1:10 P M EDT Height 160 cm (5' 3 ) 12/15/2018 1:10 PM EDT Body Mass Index 28.75 12/15/2018 1:10 PM EDT Plan of Treatment Health Maintenance Due Date Last Done Comments TDAP/TD VACCINES (1 - Tdap) 1954 Pneumococcal Vaccine 50+ (1 of 1 - PCV) 1986 ZOSTER VACCINE (1 of 2) 1986 RSV Vaccine - Adults (1 - 1-dose 75+ series) 1 ANNUAL PHYSICAL 12/14/2018 COVID-19 Vaccine (1 - 2023- season) 2024 INFLUENZA VACCINE 06/22/2025 Insurance MEDICARE A & B Member Subscriber Plan / Payer (Ef fective 2001-Present) Name:Jacinto Paulino Member ID:[id number] Relation to Subscriber:Self Name:Jacinto Paulino Subscriber ID:[id number] Payer ID:[id number] Group ID:Not on file Type:Not on file Address: [address] [employer] Care Teams Billboard Mechanic Relationship Specialty Start Date End Date Rafa Colón MD [address] [place] [id number] PCP - General Internal Medicine 12/11/18
--- OUTSIDE RECORDS SUMMARY | 2025-05-05 11:26 | XMS_ITS | Encounter Summary ---
Author Organization Healthcare Address [address] [place] [address] Care Team Providers Care Job Site Superintendent Name Role Phone Rafa Colón MD Primary Care Provider [phone] Encounter Details Date Type Department Care Team (Latest Contact Info) Description 03/08/2025 Travel Social History Tobacco Use Types Packs/Day Years [...] Description 05/18/2025 1:20 PM EDT Office Visit [facility] [place] [address] [facility] [place] [address] Suhail Cowan MD [address] [place] [address] documented as of this encounter Visit Diagnoses Not on filedocumented in this encounter Additional Health Concerns Assessment Noted Time A fall risk assessment has been complete d for the patient 05/19/2024 10:18 AM EDT A Body Mass Index follow-up plan has been documented for the patient 01/17/2025 9:07 AM EDT documented as of this encounter Care Teams Job Site Superintendent Relationship Specialty Start Date End Date Rafa Colón MD [address] [address] PCP - General 02/02/21 documented as of this encounter
--- OUTSIDE RECORDS SUMMARY | 2025-05-05 11:26 | XMS_ITS | Encounter Summary ---
Author Organization [facility] Address [address] [place] [address] Care Team Providers Care Transcriber Name Role Phone Rafa Colón MD Primary Care Provider Encounter Details Date Type Department Care Team (Late st Contact Info) Description 12/31/2017 External CPT II AT RISK PARAPROFESSIONAL - [facility] Social History Tobacco Use [...] on filedocumented in this encounter Care Teams Transcriber Relationship Specialty Start Date End Date Rafa Colón MD [address] [place] [address] PCP - General Internal Medicine 12/11/18 documented as of this encounter
--- OUTSIDE RECORDS SUMMARY | 2025-05-05 11:26 | XMS_ITS | Encounter Summary ---
Author Organization [facility] Address [address] [place] [address] Care Team Providers Care Solar Installation Supervisor Name Role Phone Rafa Colón MD Primary Care Provider Encounter Details Date Type Department Care Team (Late st Contact Info) Description 05/19/2014 External CPT II COMSEC MANAGER - [facility] Social History Tobacco Use [...] on filedocumented in this encounter Care Teams Solar Installation Supervisor Relationship Specialty Start Date End Date Rafa Colón MD [address] [place] [address] PCP - General Internal Medicine 12/11/18 documented as of this encounter
--- OUTSIDE RECORDS SUMMARY | 2025-05-05 11:26 | XMS_ITS | Encounter Summary ---
Author Organization [facility] Address [address] [place] [address] Care Team Providers Care Family Consumer Science Teacher Name Role Phone Rafa Colón MD Primary Care Provider [phone] Encounter Details Date Type Department Care Team (Late st Contact Info) Description 04/17/2015 External CPT II INSTALLATION & MAINTENANCE EXECUTIVE - [facility] Social History Tobacco Use [...] on filedocumented in this encounter Care Teams Family Consumer Science Teacher Relationship Specialty Start Date End Date Rafa Colón MD [address] [place] [address] PCP - General Internal Medicine 12/11/18 documented as of this encounter
--- OUTSIDE RECORDS SUMMARY | 2025-05-05 11:26 | XMS_ITS | Encounter Summary ---
Author Organization [facility] Address [address] [place] [address] Care Team Providers Care Aircraft Launch And Recovery Technician Name Role Phone Rafa Colón MD Primary Care Provider Encounter Details Date Type Department Care Team (Late st Contact Info) Description 12/27/2016 External CPT II WATER POLLUTION CONTROL TECHNICIAN - [facility] Social History Tobacco Use [...] on filedocumented in this encounter Care Teams Aircraft Launch And Recovery Technician Relationship Specialty Start Date End Date Rafa Colón MD [address] [place] [address] PCP - General Internal Medicine 12/11/18 documented as of this encounter
--- OUTSIDE RECORDS SUMMARY | 2025-05-05 11:26 | XMS_ITS | Clinical Summary ---
Author Organization Healthcare Address [address] [place] [address] Care Team Providers Care Bottler Name Role Phone Rafa Colón MD Primary Care Provider [phone] Allergies No known active allergies Medications gabapentin (Neurontin) 300 MG capsule Take 1 capsule by mouth daily. Active lovastatin (Mevacor) 40 MG tablet Take 1 tablet by mouth nightly. Active metoprolol tartrate (Lopressor) 50 MG tablet Take 1 tablet by mouth 2 times a day. 1.5 tablets twice a day. 75mg BID = 150mg total daily. Active temazepam (Restoril) 15 MG capsule Take 1 capsule by mouth at night as needed for sleep. Active terazosin (Hytrin) 2 MG capsule Take 5 mg by mouth nightly. Active apixaban (Eliquis) 5 MG tabletIndications :Atrial flutter, unspecified type (CMS/HCC) Take 1 tablet (5 mg) by mouth 2 (two) times a day. 180 tablet 3 4 Active amLODIPine (Norvasc) 2.5 MG tablet Take 1 tablet by mouth daily. Active traMADol (Ultram) 50 MG tablet Take 1 tablet by mouth daily as needed for severe pain. Active tamsulosin (Flomax) 0.4 MG 24 hr capsule Take 1 capsule by mouth nightly. Active sertraline (Zoloft) 25 MG tablet Take 1 tablet by mouth daily. 4 Active NRB-HAc-MhDf-NaSu lf-Na Asc-C (MoviPrep) 100 g reconstituted solution Active omeprazole (PriLOSEC) [address] capsule Take 1 capsule by mouth daily. Active nystatin (Mycostatin) cream Apply 1 Application topically. APPLY CREAM TOPICALLY TO AFFECTED AREA TWICE DAILY APPLY TO UNDER ARM DIRECTED Active nortriptyline (Pamelor) 10 MG capsule 1 capsule. Active methocarbamol (Robaxin) 750 MG tablet Take 1 tablet by mouth 3 times a day. Active hydroCHLOROthiazi de (HYDRODiuril) 25 MG tablet Take 1 tablet by mouth daily. Active dexamethasone (Decadron) 4 MG tablet Take 1 tablet by mouth 2 times a day. for 3 days Active Active Problems Problem Noted Date Diagnosed Date Abnormal EKG 02/17/2025 Acquired hammer toe 02/17/2025 Ascending aortic aneurysm 02/17/2025 BPH (benign prostatic hyperplasia) 02/17/2025 Callus of foot 02/17/2025 Decreased sensation of foot 02/17/2025 Dizziness 02/17/2025 Dyspnea 02/17/2025 Heloma molle 02/17/2025 History of aortic valve replacement 02/17/2025 Hypothyroidism 02/17/2025 Medication side effect 02/17/2025 Onychodystrophy 02/17/2025 Onychomycosis 02/17/2025 Pain around toenail 02/17/2025 Palpitation 02/17/2025 Sinusitis 02/17/2025 Sinusitis 02/17/2025 Postlaminectomy syndrome 02/17/2025 Right lower quadrant pain 02/17/2025 URI (upper respiratory infection) 02/17/2025 Lumbar radiculopathy 02/17/2025 Atrial fibrillation 01/12/2025 Chest pain 04/29/2024 Sick sinus syndrome 05/03/2022 Displacement of lumbar inter vertebral disc without myelopathy 03/15/2021 Lumbosacral radiculitis 03/15/2021 Spinal stenosis of lumbar region 03/15/2021 Essential hypertension 11/24/2020 Atrial flutter 11/23/2020 History of sick sinus syndrome 11/23/2020 Hyperlipidemia 11/23/2020 Overview (02/17/2025): borderline - not treated Cardiac pacemaker in situ 11/23/2020 Overview (03/15/2021): Brooke Dual Chamber PPM Lumbar spondylosis with myelopathy 05/11/2020 Osteoarthritis of hip, unspecified 05/11/2020 Low back pain 04/24/2020 Hip pain 04/19/2020 Aortic valve regurgitation 06/22/2012 Encounters Date Type Department Care Team Description 03/08/2025 7:45 AM EDT - 03/08/2025 11:59 PM EDT Hospital Encounter Cardiac Imaging [address] [place] [address] Pacemaker Discharge Disposition: Home or Self Care 03/08/2025 Travel from Last 3 Months Social History Tobacco Use Types Packs/Day Years Used Date Smoking Tobacco: Former Cigarettes Q uit: 2009 Smokeless Tobacco: Never Tobacco Cessation:Counseling Given: No Alcohol Use Standard Drinks/Week Comments No 0 [...] Sign Reading Time Taken Comments Blood Pressure 121/84 01/17/2025 9:15 AM EDT Pulse 60 01/17/2025 9:15 AM EDT Temperature 36.6 C (97.9 F) 01/17/2025 6:45 AM EDT Respiratory Rate 21 01/17/2025 9:15 AM EDT Oxygen Saturation 98% 01/17/2025 9:15 AM EDT Inhaled Oxygen Concentration - - Weight 66.8 kg (147 lb 4.3 oz) 01/17/2025 6:45 A M EDT Height 160 cm (5' 3 ) 01/17/2025 6:45 AM EDT Body Mass Index 26.09 01/17/2025 6:45 AM EDT Plan of Treatment Upcoming Encounters Date Type Department Care Team (Late st Contact Info) Description 05/18/2025 1:20 PM EDT Office Visit [facility] [place] [address] [place] [address] Suhail Cowan MD [address] [place] [address] Health Maintenance Due Date Last Done Comments [facility]-Medicare Annual Wellness (AWV) 1935 [facility]-Infant/Child/Adol SDOH Screenings 1936 [facility]- SDOH Screenings 1954 [facility]-Adult SDOH Screenings 1954 [facility]-Pneumococcal Vaccine: 50+ Years (1 of 1 - PCV) 1986 [facility]-DTaP,Tdap,and Td Vaccines (1 - Tdap) 01/31/2023 01/30/2023 [id number] Vaccine (7 - 2023- season) 2024 06/30/2024, 09/10/2022, 12/25/2021, Additional history exists [facility]-Depression Screening 05/19/2025 05/19/2024 [facility]-Influenza Vaccine (#1) 05/23/202506/30, 08/27/2022, 06/16/2021, Additional history exists [facility]-Zoster Vaccines Completed 08/13/2022, [facility]-RSV Vaccine: 60+ Years or Completed 06/30/2024 [facility]-Obesity Intervention Completed 025, 01/17/2025, 05/19/2024, Additional history exists HPV Vaccines Aged Out No longer eligi ble based on patient's age to complete this topic [facility]-HIB Vaccines Aged Out No longer e ligible based on patient's age to complete this topic [facility]-Hepatitis A Vaccines Aged Out No longer eligible based on patient's age to complete this topic [facility]-IPV Vaccines Aged Out No longer e ligible based on patient's age to complete this topic [facility]-Rotavirus Vaccines Aged Out No lo nger eligible based on patient's age to complete this topic Medical Devices Implanted Type Area Windows 7 Deployment Lead Device Identifier Shelf Expiration Date Model / Serial / Lot 1998 Optisense [id number] Lead 1998 OPTISENSE / [id number] / [id number] Tendril Sts [id number] Lead TENDRIL STS / [id number] / [id number] Assurity [id number] Implanted: (Quantity not on file) Pacemaker 2240 ASSURITY / [id number] / Pacemaker-11/20 Implanted: (Quantity not on file) Pacemaker Chest Liquipel Description:Cox Dual Val lita PPM Procedures Procedure Name Priority Date/Time Associated Diagnosis Comments CARDIAC DEVICE CHECK - REMOTE - PACEMAKER Routine 03/08/2025 12:14 PM EDT Pacemaker from Last 3 Months Results * CARDIAC DEVICE CHECK - REMOTE - PACEMAKER (03/08/2025 12:14 PM EDT) Anatomical Region Laterality Modality Other Narrative 03/08/2025 1:01 PM EDT Images from the original result were not included. [facility] - Device Clinic Remote CIED [...] vendor report in Media us Nancy Moore Cookie BARTONN CV IMPLANTABLE CARDIAC DEV ICE PROCEDURES Final Result from Last 3 Months Insurance MEDICARE Care Teams Bottler Relationship Specialty Start Date End Date Rafa Colón MD [address] [place] [address] PCP - General 02/02/21
--- NOTE | 2025-05-05 11:27 | XR_ITS ---
FINAL REPORT CLINICAL HISTORY: ACUTE PAIN OF LEFT KNEE FINDINGS: AP, lateral and oblique views of the left knee were obtained. There is no prior exam for comparison. There is no acute osseous abnormality of the left knee. The joint space is preserved. The soft tissues are normal. There is no significant joint effusion. IMPRESSION: No acute osseous abnormality of the left knee. Reviewed, Interpreted and Dictated by Fernanda Tolentino MD Transcribed by Cristina Dumont Authenticated and [facility]
[2025-05-05 12:03] LABS: Hematocrit 42.9 % (42.0-52.0); Hemoglobin 14.1 g/dL (14.1-18.0); Immature Granulocytes % 0.3 %; Mean Corpuscular HGB Conc 32.9 g/dL (31.8-35.4); Mean Corpuscular Hemoglobin 30.3 pg (27.0-31.2); Mean Corpuscular Volume 92.1 fl (80-94); Nucleated Red Blood Cells % 0 %; Platelet Count 202 K/mm3 (142-424); Red Blood Count 4.66 M/mm3 (4.60-6.20); Red Cell Distribution Width-SD 46.1 fL; White Blood Count 7.9 K/mm3 (4.8-10.8)
[2025-05-05 12:47] LABS: C-Reactive Protein 7.3 mg/L (0-4)
== END 2025-05-05 23:59 | disposition home or self-care (01) ==
LOC: LAB 11:22
PROVIDERS: PCP Nurse Practitioner Family; Visit Provider Nurse Practitioner Family
DX: M25.562 Pain in left knee (principal)
CPT/HCPCS: 36415; 73562; 85025; 85651; 86140